=== PATIENT | female | born 1965 ===

== ENCOUNTER 2020-06-03 14:00 | Outpatient (RCR) | payer MEDICARE, MEDICAID, SELFPAY | END 2020-06-21 09:31 | disposition other institution (70) | LOC: HO.PT 14:00 | PROVIDERS: PCP Internal Medicine; Visit Provider Neurological Surgery | DX: M53.3 Sacrococcygeal disorders, not elsewhere classified (principal) | CPT/HCPCS: 97110; 97140 ==

== ENCOUNTER 2020-06-24 12:08 | Outpatient (REF) | payer MEDICARE, MEDICAID, SELFPAY ==
[2020-06-24 12:45] LABS: MANUAL DIFF FLAG NO
[2020-06-24 13:00] LABS: Basophils Absolute Auto 0.1 X10*3/uL (0.0-0.2); Eosinophils Absolute Auto 0.2 X10*3/uL (0.0-0.4); Eosinophils Percent Auto 3.3 % (0-4); Hematocrit 38.1 % (37-47); Hemoglobin 12.4 g/dl (12.0-16.0); Imm Gran Abs Auto 0.02 X10*3/uL (0.00-0.03); Imm Gran Pct Auto 0.3 % (0.0-0.4); Lymphocytes Absolute Auto 2.1 X10*3/uL (1.2-4.9); Lymphocytes Percent Auto 29.8 % (20-40); Mean Corpuscular HGB Conc 32.5 g/dl (31.0-35.0); Mean Corpuscular Hemoglobin 30.8 pg (27.0-33.0); Mean Corpuscular Volume 94.8 fL (80-98); Mean Platelet Volume 9.7 fL (9.4-12.3); Monocytes Absolute Auto 0.8 X10*3/uL (0.1-1.2); Monocytes Percent Auto 10.9 % (2-11); Neutrophils Absolute Auto 3.8 X10*3/uL (2.0-8.3); Neutrophils Percent Auto 54.7 % (45-73); Platelet Count 275 X10*3/uL (160-400); Red Blood Count 4.02 X10*6/uL (4.20-5.50); Red Cell Distribution Width 12.7 % (11.0-16.0); White Blood Count 6.9 X10*3/uL (4.8-10.8)
[2020-06-24 13:04] LABS: Glucose Urine UA NEG (NEG); Leukocyte Esterase Urine NEG (NEG); Nitrite Urine NEG (NEG); Urine Blood TRACE (NEG); Urine Ketones NEG (NEG); Urine Protein NEG (NEG-TRACE)
[2020-06-24 13:05] LABS: Appearance Urine CLEAR; Color Urine YELLOW
[2020-06-24 13:24] LABS: Mucus Urine 1+ /LPF; Squamous Epithelial Cell Urine 1+ /LPF; WBC Urine 0 /HPF (0-4)
[2020-06-24 13:52] LABS: Vitamin D 25-OH Total 22.5 ng/mL (>30)
[2020-06-24 13:55] LABS: Alanine Aminotransferase 10 U/L (0-31); Albumin Level 4.3 g/dL (3.5-5.0); Alkaline Phosphatase 121 U/L (39-117); Anion Gap 11 (12-20); Aspartate Amino Transferase 18 U/L (5-31); Bilirubin Total 0.3 mg/dL (0.0-1.0); Blood Urea Nitrogen 13 mg/dL (9-16); C Reactive Protein 0.03 mg/dL (< or = 0.50); Calcium 9.4 mg/dL (8.4-10.2); Carbon Dioxide 32 mmol/L (22-29); Chloride 102 mmol/L (96-108); Cholesterol 187 mg/dL; Estimated Glomerular Filt Rate > 60; Glucose Fasting 91 mg/dL (60-99); HDL Cholesterol 55 mg/dL; LDL Cholesterol Calculated 108 mg/dl; Potassium 5.4 mmol/l (3.3-5.1); Sodium 140 mmol/L (135-145); Total Protein 7.7 g/dL (6.5-8.0); Triglycerides 124 mg/dL
== END 2020-06-24 12:09 | disposition home or self-care (01) ==
LOC: HO.LAB 12:08
PROVIDERS: PCP Internal Medicine; Visit Provider Internal Medicine
DX: Z00.00 Encounter for general adult medical examination without abnormal findings (principal); M79.7 Fibromyalgia; M54.9 Dorsalgia, unspecified; E55.9 Vitamin D deficiency, unspecified
CPT/HCPCS: 36415; 80053; 80061; 81001; 81003; 82306; 85025; 86140

== ENCOUNTER 2020-08-23 12:13 | Day surgery (SDC) | payer MEDICARE, MEDICAID, SELFPAY ==
--- NOTE | ~2020-08-23 | IR_ITS ---
EXAMINATION: FLUOROSCOPY-GUIDED RIGHT SI JOINT INJECTION. CLINICAL INFORMATION: Right buttock pain. COMPARISON: None TECHNIQUE: Following explaining fluoroscopy-guided right SI joint injection procedure, benefits and risk, a written consent was obtained. Patient was placed prone on fluoroscopy table and low back area was cleaned and draped. The right SI joint was localized on the right buttock region. 1% lidocaine was injected at the puncture site. A 22-gauge spinal needle was then advanced along the inferior aspect of right SI joint and 1 mL of contrast was injected to opacify the joint space and document needle position in the joint. Subsequently combination of 1 mL of hydrocortisone and 1 mL of 1% lidocaine was injected and needle withdrawn. Complete hemostasis achieved at puncture site. Patient ordered procedure well. Sterile dressing applied postprocedure. FINDINGS: The right SI joint was localized in the fluoroscopy. The joints was maintained normal. Fluoroscopy-guided right SI joint steroid injection performed. IR/IR epidurography IMPRESSION: Successful right SI joint steroid injection performed without immediate complications. Fluoroscopy time: 2.5 minutes. Images: 2
[2020-08-23 12:21] VITALS: BMI 23.4
[2020-08-23 12:38] LABS: MANUAL DIFF FLAG NO
[2020-08-23 12:41] LABS: Basophils Absolute Auto 0.1 X10*3/uL (0.0-0.2); Basophils Percent Auto 0.8 % (0-2); Eosinophils Absolute Auto 0.2 X10*3/uL (0.0-0.4); Eosinophils Percent Auto 2.9 % (0-4); Hematocrit 36.7 % (37-47); Hemoglobin 12.2 g/dl (12.0-16.0); Imm Gran Abs Auto 0.02 X10*3/uL (0.00-0.03); Imm Gran Pct Auto 0.3 % (0.0-0.4); Lymphocytes Absolute Auto 2.2 X10*3/uL (1.2-4.9); Lymphocytes Percent Auto 31.4 % (20-40); Mean Corpuscular HGB Conc 33.2 g/dl (31.0-35.0); Mean Corpuscular Hemoglobin 31.2 pg (27.0-33.0); Mean Corpuscular Volume 93.9 fL (80-98); Mean Platelet Volume 9.3 fL (9.4-12.3); Monocytes Absolute Auto 0.8 X10*3/uL (0.1-1.2); Monocytes Percent Auto 11.8 % (2-11); Neutrophils Absolute Auto 3.8 X10*3/uL (2.0-8.3); Neutrophils Percent Auto 52.8 % (45-73); Platelet Count 263 X10*3/uL (160-400); Red Blood Count 3.91 X10*6/uL (4.20-5.50); Red Cell Distribution Width 12.8 % (11.0-16.0); White Blood Count 7.1 X10*3/uL (4.8-10.8)
[2020-08-23 12:47] LABS: INTERNATIONAL NORM RATIO 1.1 (0.9-1.1); Prothrombin Time 12.9 SEC (10.8-13.0)
[2020-08-23 12:49] LABS: Partial Thromboplastin Time 33.7 SEC (24.1-38.0)
[2020-08-23 14:30] VITALS: BP 150/71; PULSE 59; RESP 16; TEMP 36.7; O2SAT 97
[2020-08-23] MEDS: Lidocaine HCl 1 % MPF 5 ML VIAL SUBCUT (14:35)
[2020-08-23] MEDS: iohexoL 300 MG/ML 50 ML INFUS..BTL IV (14:37)
[2020-08-23] MEDS: methylPREDNISolone acetate 80 MG VIAL INTRAARTIC (14:37)
[2020-08-23 14:59] VITALS: BP 141/73; PULSE 60; RESP 16; O2SAT 99
[2020-08-23 15:27] VITALS: BP 131/56; PULSE 61; RESP 17; TEMP 36.6; O2SAT 97
== END 2020-08-23 15:32 | disposition home or self-care (01) ==
PROVIDERS: Radiology Diagnostic Radiology; PCP Internal Medicine; Visit Provider Neurological Surgery
PROC: 3E0R3GC Introduction of Other Therapeutic Substance into Spinal Canal, Percutaneous Approach (ICD-10-PCS; principal; 2020-08-23 13:30)
DX: M53.3 Sacrococcygeal disorders, not elsewhere classified (principal); Z98.1 Arthrodesis status; I10 Essential (primary) hypertension
CPT/HCPCS: 27096; 36415; 72275; 85025; 85610; 85730; J0702; J1040; Q9967

== ENCOUNTER → 2020-09-22 11:15 | Outpatient (BNVA) | payer MEDICARE, MEDICAID, SELFPAY | PROVIDERS: PCP Internal Medicine; Visit Provider Student in an Organized Health Care Education/Training Program | DX: M54.41 Lumbago with sciatica, right side (principal); G89.29 Other chronic pain | CPT/HCPCS: 99212 ==

== ENCOUNTER 2021-05-05 13:54 | Outpatient (REF) | payer MEDICARE, MEDICAID, SELFPAY ==
[2021-05-05 14:45] LABS: Influenza A PCR NEGATIVE (Negative); Influenza B PCR NEGATIVE (Negative); Resp Syncy Virus RNA Qual PCR NEGATIVE (Negative); SARS COV2 PCR INHOUSE NEGATIVE (Negative)
== END 2021-05-05 13:55 | disposition home or self-care (01) ==
LOC: HO.LNP 13:54
PROVIDERS: Visit Provider Internal Medicine
DX: Z20.822 Contact with and (suspected) exposure to COVID-19 (principal)
CPT/HCPCS: 0241U

== ENCOUNTER 2021-05-27 10:12 | Outpatient (REF) | payer MEDICARE, MEDICAID, SELFPAY ==
[2021-05-27 12:40] LABS: Alanine Aminotransferase 17 U/L (0-31); Albumin Level 4.2 g/dL (3.5-5.0); Alkaline Phosphatase 117 U/L (39-117); Anion Gap 11 (12-20); Aspartate Amino Transferase 20 U/L (5-31); Bilirubin Total 0.5 mg/dL (0.0-1.0); Blood Urea Nitrogen 13 mg/dL (9-16); Calcium 9.8 mg/dL (8.4-10.2); Carbon Dioxide 30 mmol/L (22-29); Chloride 105 mmol/L (96-108); Estimated Glomerular Filt Rate > 60; Glucose Random 94 mg/dL (60-115); Potassium 4.6 mmol/L (3.3-5.1); Sodium 141 mmol/L (135-145); Total Protein 7.4 g/dL (6.5-8.0)
== END 2021-05-27 10:13 | disposition home or self-care (01) ==
LOC: HO.LAB 10:12
PROVIDERS: PCP Internal Medicine; Visit Provider Nurse Practitioner Family
DX: M54.41 Lumbago with sciatica, right side (principal); M77.11 Lateral epicondylitis, right elbow; G89.29 Other chronic pain; Z79.899 Other long term (current) drug therapy
CPT/HCPCS: 36415; 80053; 99212

== ENCOUNTER 2021-08-17 10:04 | Emergency (ER) | payer MEDICARE, MEDICAID, SELFPAY ==
[2021-08-17 11:31] VITALS: BP 165/94; PULSE 72; RESP 18; TEMP 36.7; O2SAT 97; BMI 24.4
[2021-08-17 12:51] LABS: COVID-19 Test Positive (Negative); IDNOW Serial# 9DD0AD1C
--- NOTE | 2021-08-17 13:30 | ED.URI ---
HPI - URI/Sore Throat General Chief Complaint: Upper Respiratory Symptoms Stated Complaint: COVID symptoms Time Seen by Provider: 08/17/21 13:29 Source: patient Mode of arrival: ambulatory Limitations: no limitations History of Present Illness HPI Narrative: 56-year-old female presents to the ER with COVID symptoms after known exposure. She lives at home with her daughter and grandson who both tested positive recently. All her fully vaccinated. She reports dry cough, body aches, and headaches since yesterday. She denies any shortness of breath or chest pain. She denies any fever or chills. She is drinking normally and has no nausea, vomiting or diarrhea. MD elicited complaint: cough and other (Body aches and headaches) Onset (ago): day(s) (1) Consistency: constant Severity: moderate Able to tolerate fluids by mouth: Yes Exacerbating factors: nothing Relieving factors: nothing Context: sick contacts Associated symptoms: myalgias, headache and cough Treatments prior to arrival: none Related Data Home Medications Medication Instructions Recorded Confirmed acetaminophen 325 mg capsule 650 mg PO Q6H PRN 09/22/20 (Tylenol) lorazepam 0.5 mg tablet 0.5 mg PO DAILY PRN 09/22/20 trazodone 50 mg tablet 50 mg PO BEDTIME PRN 09/22/20 pregabalin 75 mg capsule (Lyrica) 75 mg PO BEDTIME cap 05/27/21 Previous Rx's Medication Instructions Recorded lidocaine 5 % topical patch 1 patch TOPICAL DAILY #30 ea 09/22/20 Allergies Allergy/AdvReac Type Severity Reaction Status Date / Time gabapentin Allergy Mild Nausea Verified 08/17/21 11:36 Review of Systems Review of Systems: Constitutional: No Fever, No Chills ENT/Mouth: No sore throat, No Rhinorrhea, No Swallowing Difficulty Cardiovascular: No Chest Pain, No SOB Respiratory: + Cough, No Sputum, No Wheezing, No dyspnea Gastrointestinal: No Nausea, No Vomiting, No Diarrhea, No abdominal Pain Musculoskeletal: No joint pain, + Myalgias Skin: No Skin Lesions, No rash Neuro: + Weakness, No Numbness, No Dizziness, + Headache Psych: + Anxiety/Panic Heme/Lymph: No Lymphadenopathy PMFSH Past Medical History Medical History (Updated 08/17/21 @ 13:33 by EDVIN Drake) Anxiety Depression Lumbago with sciatica, right side Social History Social History Alcohol intake: never Patient Tobacco Use Status: Never used Tobacco e-Cigarette/Vaping Use: Never Used Patient : No Physical Exam Vital Signs: Vital Signs: Last Vital Signs Temp 98.1 F 08/17/21 11:31 Pulse 72 08/17/21 11:31 Resp 18 08/17/21 11:31 BP 165/94 H 08/17/21 11:31 Pulse Ox 97 08/17/21 11:31 BMI result Body Mass Index 24.4 Appearance: Alert. Oriented X3. No acute distress. Eyes: Pupils equal, round and reactive to light. ENT: Pharynx normal. Tonsils are normal in appearance without erythema or exudate Neck: Normal inspection. Neck supple. CVS: Normal heart rate and rhythm. Pulses normal. Respiratory: No respiratory distress. Breath sounds normal. Skin: Skin warm and dry. Normal skin color. Normal skin turgor. No rashes. Extremities: No lower extremity edema. No calf tenderness. Neuro: Oriented X 3. Grossly normal, nonfocal Course Course Course Narrative: 56-year-old female presenting with dry cough, headache and body aches after known exposure to COVID-19. VS are normal and exam is benign. Patient was counseled on diagnosis and management. She is stable for discharge home with supportive care and outpatient follow-up. MDM - URI/Sore Throat Lab Data Labs: Lab Results 08/17/21 Range/Units 12:37 COVID-19 ([facility]) Positive A (Negative) COVID-19 Clin Com See Note Critical Care Time Critical Care Time Critical Care Time: No Discharge Plan Discharge Clinical Impression: COVID-19 Patient Disposition: Home, Self-Care Instructions: Covid-19 Viral Syndrome and Novel Coronavirus (ED) Hey/Ath Additional Instructions: You were found to be COVID-19 POSITIVE today. Your exam and oxygen levels were normal. Rest. Drink plenty of fluids. Do not go out in public for the next 10 days. Take over the counter cold/flu medications as needed for your symptoms. Take Tylenol and/or Motrin as needed for fevers and body aches. Follow up with your doctor this week. If you shortness of breath worsens , if you develop difficulty breathing or any other concerning symptom come back to the ER for further evaluation. Prescriptions: No Action trazodone 50 mg tablet 50 mg PO BEDTIME PRNRF: 0 lorazepam 0.5 mg tablet 0.5 mg PO DAILY PRNRF: 0 acetaminophen [Tylenol] 325 mg capsule 650 mg PO Q6H PRNRF: 0 lidocaine 5 % adhesive patch,medicated 1 patch topical DAILY Qty: 30 RF: 2 pregabalin [Lyrica] 75 mg capsule 75 mg PO BEDTIME RF: 0 Referrals: Kodi Roach MD [Primary Care Provider] - 1 week Stand Alone Forms: Work/School Release
== END 2021-08-17 14:04 | disposition home or self-care (01) ==
LOC: HO.ED 13:46
PROVIDERS: Emergency Provider Emergency Medicine; PCP Internal Medicine
DX: U07.1 COVID-19 (principal)
CPT/HCPCS: 36415; 87635; 99283

== ENCOUNTER 2021-08-29 10:25 | Outpatient (REF) | payer MEDICARE, MEDICAID, SELFPAY ==
[2021-08-29 11:13] LABS: COVID-19 Test Negative (Negative); IDNOW Serial# 9DD0AD1C
== END 2021-08-29 10:26 | disposition home or self-care (01) ==
LOC: HO.LNP 10:25
PROVIDERS: Visit Provider Internal Medicine
DX: Z20.822 Contact with and (suspected) exposure to COVID-19 (principal)
CPT/HCPCS: 87635

== ENCOUNTER 2021-12-30 15:25 | Outpatient (REF) | payer MEDICARE, MEDICAID, SELFPAY ==
[2021-12-30 15:39] LABS: MANUAL DIFF FLAG NO
[2021-12-30 15:55] LABS: Basophils Absolute Auto 0.1 X10*3/uL (0.0-0.2); Eosinophils Absolute Auto 0.2 X10*3/uL (0.0-0.4); Eosinophils Percent Auto 2.1 % (0-4); Hematocrit 35.8 % (37.0-47.0); Hemoglobin 11.9 g/dl (12.0-16.0); Imm Gran Abs Auto 0.03 X10*3/uL (0.00-0.03); Imm Gran Pct Auto 0.3 % (0.0-0.4); Lymphocytes Absolute Auto 2.3 X10*3/uL (1.2-4.9); Lymphocytes Percent Auto 25.9 % (20-40); Mean Corpuscular HGB Conc 33.2 g/dl (31.0-35.0); Mean Corpuscular Volume 93.2 fL (80.0-98.0); Mean Platelet Volume 9.2 fL (9.4-12.3); Monocytes Absolute Auto 0.9 X10*3/uL (0.1-1.2); Monocytes Percent Auto 10.4 % (2-11); Neutrophils Absolute Auto 5.4 x10*3/uL (2.0-8.3); Neutrophils Percent Auto 60.3 % (45-73); Platelet Count 292 X10*3/uL (160-400); Red Blood Count 3.84 X10*6/uL (4.20-5.50); Red Cell Distribution Width 13.2 % (11.0-16.0)
[2021-12-30 16:16] LABS: Alanine Aminotransferase 11 U/L (0-31); Alkaline Phosphatase 124 U/L (39-117); Anion Gap 11 (12-20); Aspartate Amino Transferase 16 U/L (5-31); Bilirubin Total 0.4 mg/dL (0.0-1.0); Blood Urea Nitrogen 15 mg/dL (9-16); C Reactive Protein 0.05 mg/dL (< or = 0.50); Calcium 9.8 mg/dL (8.4-10.2); Carbon Dioxide 29 mmol/L (22-29); Chloride 105 mmol/L (96-108); Estimated Glomerular Filt Rate > 60; Glucose Random 94 mg/dL (60-115); Potassium 4.6 mmol/L (3.3-5.1); Sodium 140 mmol/L (135-145); Total Protein 7.6 g/dL (6.5-8.0)
[2021-12-30 16:39] LABS: Free T4 (Free Thyroxine) 1.03 ng/dL (0.71-1.85); Thyroid Stimulating Hormone 0.63 uIU/mL (0.32-4.0)
[2021-12-30 16:51] LABS: Folate 12.7 ng/mL (> or = 4.0); Vitamin B12 238 pg/mL (200-900)
[2021-12-30 16:54] LABS: Erythrocyte Sedimentation Rate 14 MM/HR (0-20)
== END 2021-12-30 15:26 | disposition home or self-care (01) ==
LOC: HO.LAB 15:25
PROVIDERS: PCP Internal Medicine; Visit Provider Internal Medicine
DX: R53.83 Other fatigue (principal); M54.9 Dorsalgia, unspecified; M79.606 Pain in leg, unspecified; E55.9 Vitamin D deficiency, unspecified; E53.8 Deficiency of other specified B group vitamins
CPT/HCPCS: 36415; 80053; 82306; 82607; 82746; 84439; 84443; 85025; 85652; 86140

== ENCOUNTER 2021-12-31 15:29 | Emergency (ER) | payer MEDICARE, MEDICAID, SELFPAY ==
[2021-12-31 16:24] VITALS: BP 147/75; PULSE 60; RESP 17; TEMP 36.3; O2SAT 98; BMI 22.4
--- NOTE | 2021-12-31 18:19 | ED_ITS ---
HPI - Skin/Abscess/Foreign Bdy General Chief complaint: Skin/Abscess/Foreign Body Stated complaint: bug bite Time Seen by Provider: 12/31/21 18:18 Source: patient Mode of arrival: ambulatory Limitations: no limitations History of Present Illness HPI narrative: 56-year-old female presents to the emergency department with complaints of a bug bite that she noticed this morning. Patient tells me that she has a small red area to her right biceps, she noticed after waking up this morning. She does not report any associated itchiness, or pain. She tells me that she is worried because she sleeps with her dog at night, she tells me she is worried about fleas in takes. She has not seen any fleas or tics on the dog however she tells me she has a concern. Patient denies any malaise, fatigue, body aches, fevers, chills, chest pain, shortness of breath, joint pain, vision changes, dizziness. No other rashes throughout body. She tells me to the best of her knowledge there is nothing on her right biceps yesterday. complaint: other (Suspected bug bite) Onset (ago): day(s) (1) Location: RUE Relieving factors: none Exacerbating factors: none Context: none Associated symptoms: denies other symptoms Treatments prior to arrival: none Related Data Home Medications Medication Instructions Recorded Confirmed acetaminophen 325 mg capsule 650 mg PO Q6H PRN 09/22/20 (Tylenol) lorazepam 0.5 mg tablet 0.5 mg PO DAILY PRN 09/22/20 trazodone 50 mg tablet 50 mg PO BEDTIME PRN 09/22/20 pregabalin 75 mg capsule (Lyrica) 75 mg PO BEDTIME cap 05/27/21 Previous Rx's Medication Instructions Recorded lidocaine 5 % topical patch 1 patch TOPICAL DAILY #30 ea 09/22/20 cephalexin 500 mg capsule 500 mg PO QID 10 Days #40 cap 12/31/21 doxycycline hyclate 100 mg capsule 100 mg PO BID 10 Days #20 cap 12/31/21 Allergies Allergy/AdvReac Type Severity Reaction Status Date / Time gabapentin Allergy Mild Nausea Verified 12/31/21 16:39 Review of Systems Review of Systems: Constitutional : No Fever, No Chills, Cardiovascular : No Chest Pain, No SOB Respiratory : No Dyspnea Gastrointestinal : No abdominal pain Musculoskeletal : No Joint Swelling Skin : + rash, No skin laceration Neuro : No Weakness, No Numbness Psych : No SI/HI Yes all other systems are reviewed and are negative FORMERLY [facility], [facility] Past Medical History Attestation statement: The following information was validated with the patient. Source: old records reviewed and nursing notes reviewed Medical History Anxiety Depression Lumbago with sciatica, right side Social History Social History Alcohol intake: never Patient Tobacco Use Status: Never used Tobacco e-Cigarette/Vaping Use: Never Used Advance Directives: No Advance Directives Information Provided: No Physical Exam Vital Signs: Vital Signs: Last Vital Signs Temp 97.4 F 12/31/21 16:24 Pulse 60 12/31/21 16:24 Resp 17 12/31/21 16:24 BP 147/75 H 12/31/21 16:24 Pulse Ox 98 12/31/21 16:24 BMI result Body Mass Index 22.4 VSS Appearance: Alert.? Oriented X3.? No acute distress.? Head: Normocephalic, atraumatic, no step-offs or deformities Eyes: Pupils equal, round and reactive to light.? ENT: Pharynx normal.? Neck: Normal inspection.? Neck supple.? CVS: Normal heart rate and rhythm.? Pulses normal.? Respiratory: No respiratory distress.? Breath sounds normal.? Abdomen: Soft and nontender.? Skin: Skin warm and dry.? Normal skin color.? Normal skin turgor.?+ rash w/ overlying warmth on right bicep (image attached) Extremities: No lower extremity edema.? No calf ttp. 5/5 strength to bilateral upper and lower extremities Back: No midline tenderness, no C-spine tenderness, full range of motion, no C VA tenderness bilaterally Neuro: Oriented X 3.? No motor deficit.? No sensory deficit. CN 2-12 intact Course Reevaluation(s) Reevaluation #1: At this time patient will be discharged home with doxycycline and Keflex. She will be called if her Lyme test are positive. Advised her to return with new or worsening symptoms. Outline the erythematous area with a skin marker and advised her to return if redness worsens or she has fevers, chills or any other abnormal symptoms. At this time comfortable with discharge home with strict return precautions. Time: 18:30 MDM - Skin/Abscess/Foreign Bdy MDM Narrative Medical decision making narrative: 1809 56 yo f presents for a rash/suspected bug bite to R. timothy X1 day. PE significant for rash to right bicept images attached Patient reports she sleeps with the dog, at this time Lyme test will be obtained. She will be started on doxycycline and Keflex for cellulitis. If needed a longer course of doxycycline will be called to her pharmacy of Lyme test are positive. Plan at this time is Lyme test. Medical Records Attestation: I reviewed the patient's medical records. Lab Data Attestation: I reviewed the patient's lab results. Critical Care Time Critical Care Time Critical Care Time: No Discharge Plan Discharge Clinical Impression: Cellulitis Patient Disposition: Home, Self-Care Instructions: Cellulitis (ED), Warm Compress or Soak (ED) Additional Instructions: Take your medications as prescribed. If you were prescribed antibiotics today, it is important that you take your medication to their entirety, do not skip any doses, do not finish them early. Follow-up with your primary care provider this week. Return to the emergency department with new or worsening symptoms. Such as fevers, chills, chest pain, shortness of breath, nausea, vomiting, dizziness, headache, vision changes, lethargy In case of emergency call 911 A Lyme panel was drawn and results are pending. If these results are positive you will be called. If this is the case additional antibiotics will be sent to her pharmacy. At this time I am treating you for skin infection with doxycycline and Keflex 2 antibiotics. Prescriptions: New doxycycline hyclate 100 mg capsule 100 mg PO BID 10 Days Qty: 20 0RF cephalexin 500 mg capsule 500 mg PO QID 10 Days Qty: 40 0RF No Action trazodone 50 mg tablet 50 mg PO BEDTIME PRN0RF lorazepam 0.5 mg tablet 0.5 mg PO DAILY PRN0RF acetaminophen [Tylenol] 325 mg capsule 650 mg PO Q6H PRN0RF lidocaine 5 % adhesive patch,medicated 1 patch topical DAILY Qty: 30 2RF Rx Instructions: leave on most painful area for up to 12 hrs pregabalin [Lyrica] 75 mg capsule 75 mg PO BEDTIME 0RF Referrals: Kodi Roach MD [Primary Care Provider] - 2 days
[2021-12-31] MEDS: cephALEXin 500 MG CAPSULE PO (18:49)
[2022-01-02 17:46] LABS: Lyme Abs Screen <0.90 index
== END 2021-12-31 18:56 | disposition home or self-care (01) ==
PROVIDERS: Physician Assistant; Emergency Provider Internal Medicine; PCP Internal Medicine
DX: L03.113 Cellulitis of right upper limb (principal)
CPT/HCPCS: 36415; 86617; 86618; 99283

== ENCOUNTER 2022-02-23 14:22 | Emergency (ER) | payer MEDICARE, MEDICAID, SELFPAY ==
[2022-02-23 14:36] VITALS: BP 151/114; PULSE 77; RESP 20; TEMP 36.8; O2SAT 97; BMI 24.1
--- NOTE | 2022-02-23 16:52 | ED_ITS ---
HPI - Skin/Abscess/Foreign Bdy General Chief complaint: Skin/Abscess/Foreign Body Stated complaint: rash on lips, painful Time Seen by Provider: 02/23/22 16:51 Source: patient Mode of arrival: ambulatory Limitations: no limitations History of Present Illness HPI narrative: 48-year-old female presents for a burning rash around her lips that she states started about a week ago after [place] the beach. Patient thought she was sunburned, but now has blisters with fluid-filled vesicles and crusting on her lower lip and area between her upper lip and nose no fevers. Feeling well otherwise No sore throat, no lesions in her mouth, no ear pain, no URI symptoms, no cough, no chest pain, no shortness of breath Related Data Home Medications Medication Instructions Recorded Confirmed acetaminophen 325 mg capsule 650 mg PO Q6H PRN 09/22/20 (Tylenol) lorazepam 0.5 mg tablet 0.5 mg PO DAILY PRN 09/22/20 trazodone 50 mg tablet 50 mg PO BEDTIME PRN 09/22/20 pregabalin 75 mg capsule (Lyrica) 75 mg PO BEDTIME 05/27/21 Previous Rx's Medication Instructions Recorded lidocaine 5 % topical patch 1 patch topical DAILY #30 ea 09/22/20 cephalexin 500 mg capsule 500 mg PO QID 10 days #40 caps 12/31/21 doxycycline hyclate 100 mg capsule 100 mg PO BID 10 days #20 caps 12/31/21 mupirocin 2 % topical ointment 1 appl topical TID #22 grams 02/23/22 oxycodone 5 mg tablet 5 mg PO Q8H PRN pain #6 tabs 02/23/22 valacyclovir 1 gram tablet 1,000 mg PO BID 10 days #20 tabs 02/23/22 Allergies Allergy/AdvReac Type Severity Reaction Status Date / Time gabapentin Allergy Mild Nausea Verified 12/31/21 16:39 Review of Systems Constitutional: Constitutional: Denies body ache(s), Denies chills, Denies fatigue, Denies fever(s), Denies headache(s), Denies malaise and Denies weakness Eyes: Eyes: Denies diplopia ENT: Denies vertigo, Denies dizziness, Denies otalgia, Denies headache(s), Denies mouth pain, Denies post nasal drip, Denies sinus pain, Denies sinus pressure, Denies sore throat and Denies throat swelling Cardiovascular: Cardiovascular: Denies chest pain, Denies syncope, Denies leg edema, Denies lightheadedness, Denies Loss of Consciousness, Denies palpitations and Denies dyspnea Respiratory: Respiratory: Denies chest congestion, Denies cough and Denies dyspnea Gastrointestinal: Gastrointestinal: Denies abdominal pain, Denies hematochezia, Denies constipation, Denies diarrhea, Denies nausea and Denies vomiting Musculoskeletal: Musculoskeletal: Reports no additional musculoskeletal complaints Integumentary/Breasts: Skin/Breast: Reports lesions, Reports rash and Reports skin pain Neurologic: Denies confusion, Denies vertigo, Denies dizziness, Denies syn cope, Denies headache(s) and Denies weakness Psychiatric: Psychiatric: Denies anxiety, Denies confusion and Denies depression Endocrine: Endocrine: Denies fatigue and Denies palpitations Allergic/Immunologic: Allergic/Immunologic: Denies throat swelling PMFSH Past Medical History Medical History Anxiety Depression Lumbago with sciatica, right side Social History Social History Alcohol intake: never Patient Tobacco Use Status: Never used Tobacco e-Cigarette/Vaping Use: Never Used Advance Directives: No Advance Directives Information Provided: Yes Physical Exam Vital Signs: Vital Signs: Last Vital Signs Temp 98.2 F 02/23/22 14:36 Pulse 77 02/23/22 14:36 Resp 20 02/23/22 14:36 BP 151/114 H 02/23/22 14:36 Pulse Ox 97 02/23/22 14:36 O2 Del Method 02/23/22 14:36 BMI result Body Mass Index 24.1 Const: General: No confusion Nutritional Appearance: well nourished Orientation/consciousness: No confusion Limitations: no limitations HEENT: Head: Yes normocephalic and Yes atraumatic Ears: hearing grossly normal bilaterally, external ears normal, TM's normal bilaterally and EAC's no rmal General nose exam: Normal external nose present Nose image: 1. Red fluid filled vesicles erythematous 2. Fluid-filled vesicles with crustiness on a erythematous base 3. Yellow crusty lesion Face and sinus: Yes sinuses nontender Mouth: Normal oral and palatal mucosa present Throat: Yes posterior oropharynx normal Eyes: Conjunctivae: conjunctivae normal Pupils: Equal, round and reactive pupils present EOM: EOMs intact bilaterally Neck: Neck: Yes full ROM, Yes no lymphadenopathy and Yes supple Resp: Effort & Inspection: normal respiratory effort and able to speak in complete sentences Auscultation: clear to auscultation bilaterally, no crackles, no rales, no rhonchi and no wheezes Cardio: Rate: regular rate Rhythm: regular rhythm Heart sounds: S1 normal heart sound present and S2 normal heart sound present GI: Inspection: Yes normal to inspection Palpation (GI): Soft to palpation, nontender, no guarding and not rigid Percussion: Yes normal to percussion Auscultation: normal bowel sounds Skin: General skin exam: crusts Rashes: rashes noted Neuro: General: No confusion Cranial nerves: Yes Equal, round and reactive pupils present Extrem: General: Yes normal to inspection and Yes full ROM Psych: Appearance: grossly normal Affect: normal affect Attitude: cooperative Thought process: Normal thought process present Course Course Course Narrative: Fluid-filled vesicles on erythematous background, crusting on lower lip Looks like and fatigue 0, cannot rule out herpetic involvement Will treat for both impetigo and herpes, did get viral herpes swab. Answered all patient's questions, gave return precautions Discharge Plan Discharge Clinical Impression: Impetigo, Herpes dermatitis Patient Disposition: Home, Self-Care Instructions: Impetigo (ED) Additional Instructions: As we discussed, this is most likely impetigo, a bacterial skin infection. However, I have obtained a viral culture swab, we will also test for herpes and treat you for herpes. Please call the hospital early next week to see what the results are, because, as we discussed, if your herpes test comes back negative we will not call you. It would be nice to know if this is herpes or not definitively. Please take valacyclovir that I prescribed to her pharmacy. I am also prescribing some oxycodone for pain. Please return to emergency room for any new or concerning symptoms Prescriptions: New mupirocin 2 % ointment 1 appl topical TID Qty: 22 0RF valacyclovir 1 gram tablet 1,000 mg PO BID 10 Days Qty: 20 0RF oxycodone 5 mg tablet 5 mg PO Q8H PRN (Reason: pain) Qty: 6 0RF Rx Instructions: Partial Fill upon patient request. No Action doxycycline hyclate 100 mg capsule 100 mg PO BID 10 Days Qty: 20 0RF cephalexin 500 mg capsule 500 mg PO QID 10 Days Qty: 40 0RF trazodone 50 mg tablet 50 mg PO BEDTIME PRN lorazepam 0.5 mg tablet 0.5 mg PO DAILY PRN acetaminophen [Tylenol] 325 mg capsule 650 mg PO Q6H PRN lidocaine 5 % adhesive patch,medicated 1 patch topical DAILY Qty: 30 2RF Rx Instructions: leave on most painful area for up to 12 hrs pregabalin [Lyrica] 75 mg capsule 75 mg PO BEDTIME Interventions: ED Discharge Assessment Last Done: 02/23/22 17:32 Discharge Date/Time: 02/23/22 17:33
[2022-02-23] MEDS: oxyCODONE HCl Immed Release 5 MG TABLET PO (17:14)
== END 2022-02-23 17:33 | disposition home or self-care (01) ==
PROVIDERS: Physician Assistant; Emergency Provider Emergency Medicine; PCP Internal Medicine
DX: L40.1 Generalized pustular psoriasis (principal); Z79.899 Other long term (current) drug therapy
CPT/HCPCS: 87255; 99283; 99284

== ENCOUNTER → 2022-09-18 09:44 | Outpatient (BNVA) | payer MEDICARE, MEDICAID, SELFPAY | PROVIDERS: PCP Internal Medicine; Visit Provider Nurse Practitioner Family | DX: M47.816 Spondylosis without myelopathy or radiculopathy, lumbar region (principal); M25.561 Pain in right knee; M25.562 Pain in left knee; M79.641 Pain in right hand | CPT/HCPCS: 99212 ==

== ENCOUNTER 2022-09-20 14:10 | Outpatient (REF) | payer MEDICARE, MEDICAID, SELFPAY ==
--- NOTE | ~2022-09-20 | XR_ITS ---
EXAMINATION: XR hand RT min 3V CLINICAL INFORMATION: Pain COMPARISON: Hand radiographs 06/13/2010 TECHNIQUE: 3 views of the hand FINDINGS: No fracture or dislocation. Degenerative changes of the distal interphalangeal joints progressed from prior, predominantly mild however worst involving the fifth DIP joint where it appears severe with complete loss of DIP joint space and degenerative spurring. No cortical erosion. Soft tissues are unremarkable. XR/XR hand RT min 3V IMPRESSION: Degenerative changes of the distal interphalangeal joints progressed from prior worst involving the fifth DIP joint where it appears severe with more mild degenerative changes involving the other digits.
--- NOTE | ~2022-09-20 | XR_ITS ---
EXAMINATION: XR knee RT 3V, XR knee LT 3V CLINICAL INFORMATION: Bilateral knee radiographs 05/24/2015 COMPARISON: None TECHNIQUE: 3 views of the bilateral knees FINDINGS: RIGHT KNEE: No acute fracture or dislocation. Joint spaces are maintained. Small suprapatellar joint effusion. Soft tissues are unremarkable. LEFT KNEE: No acute fracture or dislocation. Joint spaces are maintained. No joint effusion. Soft tissues are unremarkable. XR/XR knee LT 3V IMPRESSION: No acute osseous abnormality. Trace suprapatellar right joint effusion.
--- NOTE | ~2022-09-20 | XR_ITS ---
EXAMINATION: XR knee RT 3V, XR knee LT 3V CLINICAL INFORMATION: Bilateral knee radiographs 05/24/2015 COMPARISON: None TECHNIQUE: 3 views of the bilateral knees FINDINGS: RIGHT KNEE: No acute fracture or dislocation. Joint spaces are maintained. Small suprapatellar joint effusion. Soft tissues are unremarkable. LEFT KNEE: No acute fracture or dislocation. Joint spaces are maintained. No joint effusion. Soft tissues are unremarkable. XR/XR knee RT 3V IMPRESSION: No acute osseous abnormality. Trace suprapatellar right joint effusion.
--- NOTE | ~2022-09-20 | XR_ITS ---
EXAMINATION: XR LUMBOSACRAL SPINE AND PELVIS CLINICAL INFORMATION: Reason for Exam M54.50 - Low back pain, unspecified COMPARISON: Lumbar spine radiographs 04/06/2020 TECHNIQUE: 3 views of the lumbar spine. One view of the pelvis. FINDINGS: 5 nonrib-bearing lumbar-type vertebral bodies. Status post L4-S1 posterior spinal fusion with posterior decompression and L4-L5 anterior fusion. No evidence of hardware fracture or complication. This fixates stable anterolisthesis of L5 on S1. Vertebral body heights are maintained. Dextroconvex curvature of the lumbar spine. Advanced degenerative disc disease at L3-L4 with loss of disc space height progressed from prior. Calcified phleboliths in the pelvis. Hip and sacroiliac joint spaces are maintained. No evidence of acute pelvic fracture or dislocation on this limited single view. XR/XR lumbar spine 2-3V IMPRESSION: * Status post L4-S1 spinal fusion, fixating stable grade 1 anterolisthesis of L5 on S1. No evidence of hardware fracture or complication. * Advanced spondylosis of the lumbar spine at L3-L4, as above detailed. * Levoconvex curvature of the lumbar spine. * No acute osseous abnormality in the pelvis appreciated on this limited single view.
--- NOTE | ~2022-09-20 | XR_ITS ---
EXAMINATION: XR FACIAL BONES CLINICAL INFORMATION: Pain, fall COMPARISON: CT brain 10/03/2014 TECHNIQUE: 3 views of the facial bones were obtained. FINDINGS: Visualized portions of the paranasal sinuses appear clear. No displaced calvarial or facial fracture appreciated. XR/XR facial bones min 3V IMPRESSION: No displaced calvarial or facial fracture appreciated however given history of trauma a CT face would be more sensitive for evaluation.
--- NOTE | ~2022-09-20 | XR_ITS ---
EXAMINATION: XR LUMBOSACRAL SPINE AND PELVIS CLINICAL INFORMATION: Reason for Exam M54.50 - Low back pain, unspecified COMPARISON: Lumbar spine radiographs 04/06/2020 TECHNIQUE: 3 views of the lumbar spine. One view of the pelvis. FINDINGS: 5 nonrib-bearing lumbar-type vertebral bodies. Status post L4-S1 posterior spinal fusion with posterior decompression and L4-L5 anterior fusion. No evidence of hardware fracture or complication. This fixates stable anterolisthesis of L5 on S1. Vertebral body heights are maintained. Dextroconvex curvature of the lumbar spine. Advanced degenerative disc disease at L3-L4 with loss of disc space height progressed from prior. Calcified phleboliths in the pelvis. Hip and sacroiliac joint spaces are maintained. No evidence of acute pelvic fracture or dislocation on this limited single view. XR/XR pelvis 1-2V IMPRESSION: * Status post L4-S1 spinal fusion, fixating stable grade 1 anterolisthesis of L5 on S1. No evidence of hardware fracture or complication. * Advanced spondylosis of the lumbar spine at L3-L4, as above detailed. * Levoconvex curvature of the lumbar spine. * No acute osseous abnormality in the pelvis appreciated on this limited single view.
[2022-09-20 15:44] LABS: Erythrocyte Sedimentation Rate 18 MM/HR (0-20)
[2022-09-20 15:49] LABS: Alanine Aminotransferase 11 U/L (0-31); Albumin Level 4.2 g/dL (3.5-5.0); Alkaline Phosphatase 135 U/L (39-117); Anion Gap 7 (12-20); Aspartate Amino Transferase 18 U/L (5-31); Bilirubin Total 0.5 mg/dL (0.0-1.0); Blood Urea Nitrogen 13 mg/dL (9-16); C Reactive Protein 0.29 mg/dL (< or = 0.50); Calcium 9.5 mg/dL (8.4-10.2); Carbon Dioxide 31 mmol/L (22-29); Chloride 104 mmol/L (96-108); Estimated Glomerular Filt Rate > 60; Glucose Random 90 mg/dL (60-115); Potassium 4.2 mmol/L (3.3-5.1); Sodium 138 mmol/L (135-145); Total Protein 7.4 g/dL (6.5-8.0)
[2022-09-27 20:48] LABS: HLA B27 Positive (Negative)
== END 2022-09-20 14:11 | disposition home or self-care (01) ==
LOC: HO.LAB 14:10
PROVIDERS: Absent Provider Internal Medicine; PCP Internal Medicine; Visit Provider Nurse Practitioner Family
DX: M25.561 Pain in right knee (principal); M25.562 Pain in left knee; M54.50 Low back pain, unspecified; M79.641 Pain in right hand; R10.2 Pelvic and perineal pain; Z91.81 History of falling
CPT/HCPCS: 36415; 70150; 72100; 72170; 73130; 73562; 80053; 85652; 86140; 86812

== ENCOUNTER 2023-04-30 12:17 | Outpatient (REF) | payer MEDICARE, MEDICAID, SELFPAY ==
--- NOTE | ~2023-04-30 | XR_ITS ---
EXAMINATION: XR HAND, LEFT CLINICAL INFORMATION: Left hand pain. COMPARISON: None available. TECHNIQUE: PA, lateral, and oblique views of the left hand. FINDINGS: No acute fracture or dislocation. Mild joint space narrowing with tiny marginal osteophytes at the 1st carpometacarpal and 1st interphalangeal joints. Mild joint space narrowing with small marginal osteophytes scattered throughout the remaining interphalangeal joints. No osseous erosion. No abnormal soft tissue calcification. XR/XR hand LT min 3V IMPRESSION: Mild degenerative arthritis at the 1st carpometacarpal and 1st interphalangeal joints as well as scattered throughout the remaining interphalangeal joints.
--- NOTE | ~2023-04-30 | XR_ITS ---
EXAMINATION: XR RIBS, RIGHT CLINICAL INFORMATION: Right flank pain. COMPARISON: Most recent chest radiograph dated 03/11/2019. TECHNIQUE: PA view the chest as well as 3 views of the right ribs. FINDINGS: No airspace consolidation. No pleural effusion or pneumothorax. Stable cardiac mediastinal silhouette. No displaced fracture. No lytic or blastic osseous lesion. No abnormal soft tissue calcification. XR/XR ribs RT min 3V w CXR1V IMPRESSION: No displaced fracture.
[2023-04-30 12:28] LABS: MANUAL DIFF FLAG NO
[2023-04-30 13:36] LABS: Basophils Absolute Auto 0.1 X10*3/uL (0.0-0.2); Eosinophils Absolute Auto 0.3 X10*3/uL (0.0-0.4); Eosinophils Percent Auto 2.9 % (0-4); Hematocrit 37.1 % (37.0-47.0); Hemoglobin 12.1 g/dl (12.0-16.0); Imm Gran Abs Auto 0.04 X10*3/uL (0.00-0.03); Imm Gran Pct Auto 0.5 % (0.0-0.4); Lymphocytes Absolute Auto 2.2 X10*3/uL (1.2-4.9); Lymphocytes Percent Auto 25.8 % (20-40); Mean Corpuscular HGB Conc 32.6 g/dl (31.0-35.0); Mean Corpuscular Hemoglobin 31.2 pg (27.0-33.0); Mean Corpuscular Volume 95.6 fL (80.0-98.0); Mean Platelet Volume 9.8 fL (9.4-12.3); Monocytes Absolute Auto 1.1 X10*3/uL (0.1-1.2); Monocytes Percent Auto 12.3 % (2-11); Neutrophils Percent Auto 57.5 % (45-73); Platelet Count 319 X10*3/uL (160-400); Red Blood Count 3.88 X10*6/uL (4.20-5.50); Red Cell Distribution Width 12.9 % (11.0-16.0); White Blood Count 8.6 X10*3/uL (4.8-10.8)
[2023-04-30 13:44] LABS: Appearance Urine Clear; Color Urine Yellow; Glucose Urine UA Negative (Negative); Leukocyte Esterase Urine Negative (Negative); Nitrite Urine Negative (Negative); PH 5.5 (5.0-9.0); Specific Gravity - Urine 1.015 (1.005-1.025); UMIC TRIGGER UA YES; Urine Blood Trace (Negative); Urine Ketones Negative (Negative); Urine Protein Negative (Neg-Trace)
[2023-04-30 13:51] LABS: Bacteria Urine None Seen (None Seen); Hyaline Casts Urine 0-2 /LPF (0-2); RBC Urine 0-2 /HPF (0-2); WBC Urine 0-5 /HPF (0-5)
[2023-04-30 14:36] LABS: Anion Gap 10 (12-20); Blood Urea Nitrogen 11 mg/dL (9-16); Calcium 10.2 mg/dL (8.4-10.2); Carbon Dioxide 29 mmol/L (22-29); Chloride 106 mmol/L (96-108); Estimated Glomerular Filt Rate > 60; Glucose Random 89 mg/dL (60-115); Potassium 4.1 mmol/L (3.3-5.1); Sodium 141 mmol/L (135-145)
== END 2023-04-30 12:18 | disposition home or self-care (01) ==
LOC: HO.LAB 12:17
PROVIDERS: PCP Internal Medicine; Visit Provider Internal Medicine
DX: M79.642 Pain in left hand (principal); R10.9 Unspecified abdominal pain; R07.81 Pleurodynia
CPT/HCPCS: 36415; 71101; 73130; 80048; 81001; 85025; 87086

== ENCOUNTER 2023-06-08 08:12 | Outpatient (REF) | payer MEDICARE, MEDICAID, SELFPAY ==
--- NOTE | ~2023-06-08 | MM_ITS ---
EXAMINATION: BONE DENSITOMETRY CLINICAL INDICATION: Screening. COMPARISON: This is the patient's baseline examination. TECHNIQUE: Using a [employer] DXA System (software version: 13.1) manufactured by [employer], dual-energy x-ray absorptiometry was performed of the lumbar spine and left hip. The images are of good technical quality. Summary results are attached. FINDINGS: LEFT FEMUR, NECK: BMD 0.749 g/cm2, Z-score -0.7, T-score -2.1, osteopenia. LEFT FEMUR, TOTAL: BMD 0.830 g/cm2, Z-score -0.3, T-score -1.4, osteopenia. AP SPINE L1-L3 (excluding L4): The data of L1-L4 has been changed to exclude the L4 vertebral body, because metallic hardware at this level may cause overestimation of lumbar spine density. BMD 0.836 g/cm2, Z-score -1.4, T-score -2.8, osteoporosis. IDENTIFIED RISK FACTORS: Menopause. HISTORY OF FRACTURE: None listed. MEDICATIONS: None listed. MM/XR DEXA axial skeleton IMPRESSION: 1. DIAGNOSIS: Osteoporosis based on the lowest T-score value of -2.8 in the lumbar spine applying World Health Organization criteria. 2. 10-YEAR FRACTURE RISK PREDICTION, FRAX: According to the guidelines, FRAX calculation should only be performed on patients in the osteopenia bone density category. Therefore, FRAX was not performed on this patient. 3. Treatment Recommendations: NOF guidelines recommend consideration for treatment in postmenopausal women and men age 50 and older presenting with the following: -A hip or vertebral (clinical or morphometric) fracture. -T-score less than or equal to -2.5 at the femoral neck or spine after appropriate evaluation to exclude secondary causes. -Low bone mass at the hip or spine and a 10-year fracture probability by FRAX of greater than or equal to 3% for hip fracture or greater than or equal to 20% for major osteoporotic fracture based on the [place] adapted WHO algorithm. 4. Other Recommendations: All treatment decisions require clinical judgment and consideration of individual patient factors, including patient preferences, comorbidities, previous drug use, risk factors not captured in the FRAX model (e.g. frailty, falls, vitamin D deficiency, increased bone turnover, interval significant decline in bone density) and possible under or overestimation of fracture risk by FRAX. Additional medical evaluation for secondary cause of low bone mineral density may be appropriate. FUTURE SCAN RECOMMENDATION: People with diagnosed cases of osteoporosis or at high risk for fracture should have regular bone mineral density tests. For patients eligible for Medicare, routine testing is allowed once every 2 years. The testing frequency can be increased to one year for patients who have rapidly progressing disease, those who are receiving or discontinuing medical therapy to restore bone mass, or have additional risk factors.
--- NOTE | ~2023-06-08 | MM_ITS ---
EXAMINATION: MM SCREENING DIGITAL BREAST TOMOSYNTHESIS, BILATERAL CLINICAL INFORMATION: Screening. Asymptomatic. COMPARISON: Mammography: This study is compared with prior exams dating back to 2016. TECHNIQUE: Digital breast tomosynthesis is performed in both the craniocaudal and mediolateral oblique views along with computer-aided detection (CAD). Synthesized 2D images are generated from the tomosynthesis. FINDINGS: The breasts are heterogeneously dense, which may obscure small masses (ACR BI-RADS breast composition Category c). There are no significant masses, abnormal calcifications, or other abnormalities. MM/MM tomosynthesis screening BI IMPRESSION: No mammographic evidence of malignancy. ASSESSMENT: BI-RADS BI-RADS 1 - Negative RECOMMENDATION: Routine annual mammography screening. 1 year F/U This examination should not preclude the clinical evaluation of a suspicious palpable abnormality. This patient's information was entered into a reminder system with a target due date for their next mammogram.
== END 2023-06-08 08:13 | disposition home or self-care (01) ==
LOC: HO.MAMMO 08:12
PROVIDERS: PCP Internal Medicine; Visit Provider Internal Medicine
DX: Z12.31 Encounter for screening mammogram for malignant neoplasm of breast (principal); Z13.820 Encounter for screening for osteoporosis; Z78.0 Asymptomatic menopausal state
CPT/HCPCS: 77063; 77067; 77080

== ENCOUNTER → 2023-06-08 08:45 | Outpatient (BNV) | payer MEDICARE, MEDICAID, SELFPAY | PROVIDERS: PCP Internal Medicine; Visit Provider Radiology Diagnostic Radiology | DX: Z12.31 Encounter for screening mammogram for malignant neoplasm of breast (principal) | CPT/HCPCS: 77063; 77067 ==

== ENCOUNTER 2023-10-17 11:24 | Outpatient (REF) | payer MEDICARE, MEDICAID, SELFPAY ==
--- NOTE | ~2023-10-17 | XR_ITS ---
EXAMINATION: XR CHEST CLINICAL INFORMATION: Cough COMPARISON: 04/30/2023 TECHNIQUE: 2 views of the chest were obtained. FINDINGS: No significant abnormality is noted involving the heart, lungs, mediastinum, bony thorax or soft tissues. XR/XR chest 2V IMPRESSION: Unremarkable examination.
== END 2023-10-17 11:25 | disposition home or self-care (01) ==
LOC: HO.XRAY 11:24
PROVIDERS: PCP Internal Medicine; Visit Provider Internal Medicine
DX: R05.9 Cough, unspecified (principal); K21.9 Gastro-esophageal reflux disease without esophagitis; J31.0 Chronic rhinitis
CPT/HCPCS: 71046

== ENCOUNTER 2024-02-25 12:30 | Outpatient (REF) | payer MEDICARE, MEDICAID, SELFPAY ==
--- NOTE | ~2024-02-25 | XR_ITS ---
EXAMINATION: XR CERVICAL SPINE CLINICAL INFORMATION: Neck pain COMPARISON: X-ray cervical spine on 09/09/2008 TECHNIQUE: 3 views of the cervical spine were obtained. FINDINGS: The visualized cervical vertebrae are intact with normal alignment. Odontoid process is intact with normal C1/C2 lateral masses alignment. Pre-dental interval is normal. Pre vertebral soft tissue is normal in thickness. XR/XR cervical spine 3V IMPRESSION: 1. Unchanged Normal cervical spine x-ray. 2. No fracture or dislocation of cervical spine is seen.
[2024-02-25 12:45] LABS: MANUAL DIFF FLAG NO
[2024-02-25 13:01] LABS: Basophils Absolute Auto 0.1 X10*3/uL (0.0-0.2); Basophils Percent Auto 1.2 % (0-2); Eosinophils Absolute Auto 0.2 X10*3/uL (0.0-0.4); Eosinophils Percent Auto 2.9 % (0-4); Hematocrit 38.6 % (37.0-47.0); Hemoglobin 12.6 g/dl (12.0-16.0); Imm Gran Abs Auto 0.04 X10*3/uL (0.00-0.03); Imm Gran Pct Auto 0.5 % (0.0-0.4); Lymphocytes Absolute Auto 2.1 X10*3/uL (1.2-4.9); Mean Corpuscular HGB Conc 32.6 g/dl (31.0-35.0); Mean Corpuscular Volume 95.1 fL (80.0-98.0); Mean Platelet Volume 9.3 fL (9.4-12.3); Monocytes Absolute Auto 0.9 X10*3/uL (0.1-1.2); Monocytes Percent Auto 11.3 % (2-11); Neutrophils Absolute Auto 4.8 x10*3/uL (2.0-8.3); Neutrophils Percent Auto 58.1 % (45-73); Platelet Count 294 X10*3/uL (160-400); Red Blood Count 4.06 X10*6/uL (4.20-5.50); Red Cell Distribution Width 13.1 % (11.0-16.0); White Blood Count 8.2 X10*3/uL (4.8-10.8)
[2024-02-25 13:36] LABS: Anion Gap 13 (12-20); Blood Urea Nitrogen 13 mg/dL (9-16); C Reactive Protein < 0.10 mg/dL (< or = 0.50); Carbon Dioxide 27 mmol/L (22-29); Chloride 105 mmol/L (96-108); Estimated Glomerular Filt Rate > 60; Glucose Fasting 106 mg/dL (60-99); Potassium 4.3 mmol/L (3.3-5.1); Sodium 141 mmol/L (135-145)
[2024-02-25 13:47] LABS: Erythrocyte Sedimentation Rate 15 MM/HR (0-20)
== END 2024-02-25 12:31 | disposition home or self-care (01) ==
LOC: HO.XRAY 12:30
PROVIDERS: PCP Internal Medicine; Visit Provider Internal Medicine
DX: M54.2 Cervicalgia (principal); K21.9 Gastro-esophageal reflux disease without esophagitis; M79.7 Fibromyalgia
CPT/HCPCS: 36415; 72040; 80048; 82550; 85025; 85652; 86140

== ENCOUNTER 2024-04-28 08:43 | Outpatient (AMB) | payer MEDICARE, MEDICAID, SELFPAY ==
[2024-04-28 08:47] VITALS: BP 120/76; PULSE 66; O2SAT 96; BMI 25.3
--- NOTE | 2024-04-28 08:47 | MHC.OFFVIS ---
Vital Signs 04/28/24 08:47 Height 5 ft 1 in Weight 134 lb BMI 25.3 BP 120/76 Blood Pressure Location Lt brachial Position Sitting Pulse 66 Pulse Source Pulse Oximeter Pulse Oximetry (%) 96 Oxygen Delivery Method Room Air Intake Visit Reasons: joint pain Intake Note: Patient presents today for joint pain. She was seen by Jessie Leung on 08/22/2022 for lower back pain. Patient still complains of pain in the back, and neck and shoulder pain. Allergies gabapentin Allergy (Mild, Verified 09/18/22 10:10) Nausea Medication List - Last Reconciled 04/28/24 by Hunter Espinoza MD acetaminophen (Tylenol) 650 mg PO Q6H PRN cyclobenzaprine 5 mg PO TID PRN lidocaine 5% 1 patch topical DAILY lorazepam 0.5 mg PO DAILY PRN pregabalin (Lyrica) 75 mg PO BEDTIME trazodone 50 mg PO BEDTIME PRN valacyclovir 1,000 mg PO BID PRN HPI Comments Details: This is a 59-year-old female with osteoarthritis who presents for follow-up. She was previously evaluated by Rheumatology and no evidence of an autoimmune rheumatic disease was found. She states that she has had an issues for many years. She has known scoliosis. She had spinal fusion more than 10 years ago. She states that she has chronic low back pain, right hip pain. The pain has been chronic and persistent for years but is generally worse in the middle of the night. She also has left-sided neck pain. She states that she has done physical therapy many times for many years with mixed results. She had a few epidural injections in her spine which gives her relief for a few months. She denies history of uveitis. Denies history suggestive of inflammatory bowel disease. She is unaware of any family history of an autoimmune rheumatic disease [facility] Medical History Lumbar spondylosis Depression Anxiety Lumbago with sciatica, right side Surgical History History of lumbar fusion Family History Mother Diabetes Heart disease Father Medical history unknown Social History Alcohol intake: never Patient Tobacco Use Status: Never used Tobacco e-Cigarette/Vaping Use: Never Used Review of Systems ENT Reports neck pain Musc Reports back pain, Reports arthralgias, Denies joint swelling and Reports neck pain Physical Exam Vital Signs: Last Vital Signs Pulse 66 04/28/24 08:47 BP 120/76 04/28/24 08:47 Pulse Ox 96 04/28/24 08:47 Oxygen Delivery Method Room Air 04/28/24 08:47 BMI result Body Mass Index 25.3 Const General: cooperative, healthy appearing and comfortable Nutritional Appearance: average body habitus Orientation/consciousness: patient oriented x3 Limitations: no limitations HEENT Head: Yes normocephalic and Yes atraumatic Mouth: moist mucous membranes Resp Effort & Inspection: normal respiratory effort and able to speak in complete sentences Auscultation: clear to auscultation bilaterally Skin General skin exam: no rashes or lesions noted Neuro General: patient oriented x3 Extrem Other: Mild osteoarthritic changes of both hands with no active synovitis Normal nailfold capillaroscopy Normal range of motion of hands, wrists, elbows and shoulders without pain Left upper trapezius muscle tenderness Bilateral lumbar paraspinal muscle tenderness Right buttock tenderness Positive straight leg raise test bilaterally Assessment & Plan Assessment & Plan (1) Lumbar spondylosis: Code(s): M47.816 - Spondylosis without myelopathy or radiculopathy, lumbar region Category: Medical Plan: This is a 59-year-old female with known lumbar osteoarthritis and scoliosis who presents for follow-up. Patient has had chronic spinal pain for many years. I think it is mostly due to degenerative arthritis and scoliosis. However given her HLA B27 positivity I would like to rule out sacroiliitis. Will check bilateral SI joint x-rays There is likely a component of muscle spasm contributing to her neck pain. I will prescribe short course of Flexeril Patient stated that she has had epidural injections in the past and they were helpful. Will refer patient to pain management Plan I spent 26 minutes reviewing patient's chart, evaluating patient, ordering diagnostic workup, counseling patient and documenting in the chart Orders: Orders XR sacroiliac joint min 3V Today G89.29 - Other chronic pain, M54.41 - Lumbago with sciatica, right side Referrals Pain Management Referral M47.816 - Spondylosis without myelopathy or radiculopathy, lumbar region Medications: New cyclobenzaprine Can cause dizziness/grogginess. Do not drive or operate heavy machinery if feeling as such 5 mg PO TID PRN 20 tabs 0RF muscle spasm Coding Level of Care Code Est Pt Level 4 (58123) Diagnoses Lumbar spondylosis M47.816
== END 2024-04-28 09:29 | disposition home or self-care (01) ==
PROVIDERS: PCP Internal Medicine; Visit Provider Student in an Organized Health Care Education/Training Program
DX: M47.816 Spondylosis without myelopathy or radiculopathy, lumbar region (principal)
CPT/HCPCS: 99214

== ENCOUNTER → 2024-04-28 08:43 | Outpatient (BNVA) | payer MEDICARE, MEDICAID, SELFPAY | PROVIDERS: PCP Internal Medicine; Visit Provider Student in an Organized Health Care Education/Training Program | DX: M47.816 Spondylosis without myelopathy or radiculopathy, lumbar region (principal) | CPT/HCPCS: 99212 ==

== ENCOUNTER 2024-05-07 14:24 | Outpatient (AMB) | payer MEDICARE, MEDICAID, SELFPAY ==
--- NOTE | 2024-05-07 14:32 | A.OFFVIS_ITS ---
Vital Signs 05/07/24 14:33 Height 5 ft 1 in Weight 139 lb BMI 26.3 BP 167/80 H Blood Pressure Location Lt brachial Position Sitting Pulse 72 Pulse Source Pulse Oximeter Pulse Oximetry (%) 97 Oxygen Delivery Method Room Air Intake Visit Reasons: Spondylosis without myelopathy or radiculopathy Allergies gabapentin Allergy (Mild, Verified 05/07/24 14:33) Nausea Medication List - Last Reconciled 05/07/24 by Nel Christy acetaminophen (Tylenol) 650 mg PO Q6H PRN cyclobenzaprine 5 mg PO TID PRN lidocaine 5% 1 patch topical DAILY lorazepam 0.5 mg PO DAILY PRN pregabalin (Lyrica) 75 mg PO BEDTIME trazodone 50 mg PO BEDTIME PRN valacyclovir 1,000 mg PO BID PRN HPI Comments Details: Ana is a very pleasant 59-year-old female who presents the office today for evaluation management of her right lower back pain. She has been suffering with this pain since before 2010. In 2010 she underwent anterior and posterior lumbar fusion. After the fusion she had approximately 2 years of relief but then pain returned and has been progressively worsening since She endorses right lower back pain with radiation down the right leg Pain is worse with movement, improves with heat Pain today is rated as an 8/10, constant throughout the day Completed physical therapy without improvement of her symptoms. Five or 6 years ago she underwent injections at [facility] but has not had any since Has never tried chiropractor, acupuncture or massage Currently taking Lyrica daily but pain persists. She is also taking Motrin 600 mg as needed that provides her minimal relief Denies red flag symptoms including new loss of bowel, bladder or saddle anesthesia In terms of muscle damage condition is described as stabbing, sharp, burning, tingling, pins and needles Denies current use of anticoagulants Denies implantable devices, pacemaker defibrillator Denies current use of nicotine, tobacco, alcohol or illicit substances [facility] Medical History Lumbar spondylosis Depression Anxiety Lumbago with sciatica, right side Surgical History History of lumbar fusion Family History Mother Diabetes Heart disease Father Medical history unknown Social History Alcohol intake: never Patient Tobacco Use Status: Never used Tobacco e-Cigarette/Vaping Use: Never Used Review of Systems Const All systems reviewed & are unremarkable except as noted in HPI and below Physical Exam Vital Signs: Last Vital Signs Pulse 72 05/07/24 14:33 BP 167/80 H 05/07/24 14:33 Pulse Ox 97 05/07/24 14:33 Oxygen Delivery Method Room Air 05/07/24 14:33 BMI result Body Mass Index 26.3 General: awake, alert, oriented. Answers questions appropriately. Fully engaged in examination. Skin: warm, dry, intact HEENT: Normocephalic. Hearing intact. Cardiac: External chest normal in appearance. Respiratory: No cough, audible wheezing or stridor. Abdomen: without gross distension. MS: No obvious swelling or deformities. Able to stand on bilateral tiptoes and bilateral heels.? Able to transition from sit to stand unassisted. Ambulates with bilaterally normal heel strike and toe off Scoliosis SLR positive on the right Nontender over bilateral PSIS Tenderness to midline lumbar vertebrae and lumbar paraspinal muscles Bilateral lower extremity strength 5/5 Negative footdrop, negative clonus Decreased lumbar range of motion Valsalva negative Facet loading positive Neurological: Oriented to person, place, time and situation. Thought process intact. No gait abnormalities appreciated. Psychiatric: Appropriate mood and affect. Good judgment and insight. Results Reviewed Results Reviewed: 09/20/22 XR/XR lumbar spine 2-3V IMPRESSION: * Status post L4-S1 spinal fusion, fixating stable grade 1 anterolisthesis of L5 on S1. No evidence of hardware fracture or complication. * Advanced spondylosis of the lumbar spine at L3-L4, as above detailed. * Levoconvex curvature of the lumbar spine. * No acute osseous abnormality in the pelvis appreciated on this limited single view. Assessment & Plan Assessment & Plan (1) Lumbar spondylosis: Code(s): M47.816 - Spondylosis without myelopathy or radiculopathy, lumbar region Category: Medical (2) Lumbar radiculopathy: Code(s): M54.16 - Radiculopathy, lumbar region Category: Medical (3) Post laminectomy syndrome: Code(s): M96.1 - Postlaminectomy syndrome, not elsewhere classified Category: Medical Plan Patient presented to the office today for evaluation and management of her chronic lower back pain History, physical exam and provocative testing consistent with post laminectomy syndrome and right lumbar radiculopathy Patient has exhausted conservative therapy including greater than 6 months of PT, home exercise program, [id number] medications, topical medications and nonsteroidal anti-inflammatory medications all without improvement of her sympto ms MRI lumbar spine without contrast ordered for review. Discussed treatment options with the patient today including SCS trial/implant with [employer]. She was given a pamphlet to review at home. Patient will follow up after MRI and we will discuss this further All questions and concerns were answered, patient agrees with the plan. Follow up after MRI, sooner if needed Orders: Orders MR lumbar spine wo con Today M54.16 - Radiculopathy, lumbar region Coding Level of Care Code New Pt Level 4 (71310) Complex EM visit Add On G2211 Diagnoses Lumbar spondylosis M47.816 Lumbar radiculopathy M54.16 Post laminectomy syndrome M96.1
[2024-05-07 14:33] VITALS: BP 167/80; PULSE 72; O2SAT 97; BMI 26.3
== END 2024-05-07 15:18 | disposition home or self-care (01) ==
PROVIDERS: PCP Internal Medicine; Visit Provider Registered Nurse Emergency
DX: M47.816 Spondylosis without myelopathy or radiculopathy, lumbar region (principal); M54.16 Radiculopathy, lumbar region; M96.1 Postlaminectomy syndrome, not elsewhere classified
CPT/HCPCS: 99204; 99214; G2211

== ENCOUNTER → 2024-05-07 14:24 | Outpatient (BNVA) | payer MEDICARE, MEDICAID, SELFPAY | PROVIDERS: PCP Internal Medicine; Visit Provider Registered Nurse Emergency | DX: M47.816 Spondylosis without myelopathy or radiculopathy, lumbar region (principal); M96.1 Postlaminectomy syndrome, not elsewhere classified; M54.16 Radiculopathy, lumbar region | CPT/HCPCS: 99202 ==

== ENCOUNTER 2024-06-13 17:32 | Outpatient (REF) | payer MEDICARE, MEDICAID, SELFPAY | END 2024-06-13 17:33 | disposition home or self-care (01) | LOC: HO.MRI 17:32 | PROVIDERS: PCP Internal Medicine; Visit Provider Registered Nurse Emergency | DX: M54.16 Radiculopathy, lumbar region (principal) | CPT/HCPCS: 72148 ==

== ENCOUNTER → 2024-06-13 17:32 | Outpatient (BNV) | payer MEDICARE, MEDICAID, SELFPAY | PROVIDERS: PCP Internal Medicine; Visit Provider Radiology Diagnostic Radiology | DX: M54.16 Radiculopathy, lumbar region (principal) | CPT/HCPCS: 72148 ==

== ENCOUNTER 2024-08-09 08:05 | Outpatient (REF) | payer MEDICARE, MEDICAID, SELFPAY | END 2024-08-09 08:06 | disposition home or self-care (01) | LOC: HO.MAMMO 08:05 | PROVIDERS: PCP Internal Medicine; Visit Provider Internal Medicine | DX: Z12.31 Encounter for screening mammogram for malignant neoplasm of breast (principal) | CPT/HCPCS: 77063; 77067 ==

== ENCOUNTER → 2024-08-09 08:15 | Outpatient (BNV) | payer MEDICARE, MEDICAID, SELFPAY | PROVIDERS: PCP Internal Medicine; Visit Provider Internal Medicine | DX: Z12.31 Encounter for screening mammogram for malignant neoplasm of breast (principal) | CPT/HCPCS: 77063; 77067 ==

== ENCOUNTER 2024-12-17 10:55 | Outpatient (RCR) | payer MEDICARE, MEDICAID, SELFPAY ==
--- NOTE | 2024-12-03 15:42 | MHC.PT.EP ---
[facility] [place] Office [place] [facility] [place] [facility] [address] Raman Munoz [address] [phone] F: [phone] F: [phone] F: [phone] F: [phone] Physical Therapy Plan of Care Date of Evaluation: 12/03/24 Date of Surgery: Diagnosis: RIGHT sided sciatica, low back pain, neck pain (MD Dx) Pt hx of lumbar fusion L4-S1 (2010) RS Assessment: Ana is a pleasant 59 y.o. female who is referred to PT by Dr. Kodi Rankin MD, with Dx of RIGHT sided sciatica, low back pain, neck pain. She has a history of lumbar fusion L4-S1 (2010), has core weakness. Her neck pain presents as postural as she has hx of scoliosis. Patient impairments include chronic pain in neck and low back, R LE radicular sxs, limited lumbar and cervical ROM, weakness in core musculature, bilateral hips and shoulders. Patient current functional limitations are difficulty bending/squatting, prolonged walking or sitting, reading, turning head. Patient will benefit from skilled PT to address aforementioned impairments and functional limitations to meet established goals. Frequency and Duration: The patient will be seen 2x.week for 4 weeks Short Term Goals: 2 weeks Patient demonstrates consistency and independence with HEP to self manage symptoms. Investment Broker Goals: 4 weeks Patient presents with increased cervical rotation 50 degrees to improve mobility. Patient presents with increased R hip flexion strength 4-/5 to be able to bend/squat more easily. Treatment Plan: Modalities to reduce pain, spasms and effusion. Manual therapy to restore motion and function. Therapeutic exercise to improve strength and flexibility. Neuromuscular re-education for posture and balance. Therapeutic activities to return to functional activities of daily living. Electronically signed by: Natividad Stevens, PT, DPT Please sign and return to therapist. Thank you for your referral.
--- NOTE | 2025-03-02 10:49 | MHC.PT.DC ---
[facility] [place] [facility] [place] [facility] [place] [facility] [address] Raman Munoz [address] [phone] F: [phone] F: [phone] F: [phone] F: [phone] Physical Therapy Discharge Report Diagnosis: RIGHT sided sciatica, low back pain, neck pain ( Dx) Pt hx of lumbar fusion L4-S1 (2010) RS Date of Surgery: Date of Evaluation: 12/03/24 Date of Discharge: 03/02/25 Treatments to Date: 3 Cancellations to Date: 7 No Shows to Date: 0 Discharge Status: Discharge Summary: Ana was only seen for 3 sessions of PT (evaluation and 2 FUP sessions). Due to limited visits, difficulty determining effectiveness of PT interventions on patient condition. She cancelled all of her visits after her session on 12/17/24. Therefore she is discharged from PT at this time. Electronically signed by: Natividad Stevens, PT, DPT Please sign and return to therapist. Thank you for your referral.
== END 2025-03-02 10:49 | disposition home or self-care (01) ==
LOC: HO.PT 10:55
PROVIDERS: PCP Internal Medicine; Visit Provider Internal Medicine
DX: M54.31 Sciatica, right side (principal); M54.50 Low back pain, unspecified
CPT/HCPCS: 97110; 97112; 97140; 97162

== ENCOUNTER 2024-12-22 14:10 | Outpatient (AMB) | payer MEDICARE, MEDICAID, SELFPAY ==
--- NOTE | 2024-12-22 14:27 | A.OFFPC_ITS ---
Intake Visit Reasons: Routine - see comments Wellness Program Manager Required: No Accompanied by: Self / Same As Patient Allergies gabapentin Allergy (Mild, Verified 12/22/24 14:29) Nausea Tobacco use date assessed: 12/22/24 Dental Screening Dental Screen Date: 12/22/24 Did you have a dental visit in the last 12 months?: Yes Did you have a dental problem in the last 6 months where you did not have access to dental care?: No Was dental information given to patient?: Patient has dentist HPI HPI Comments History of Present Illness Details Patient presented to the office today for evaluation and management of her chronic lower back pain History, physical exam and provocative testing consistent with post laminectomy syndrome and right lumbar radiculopathy Patient has exhausted conservative therapy including greater than 6 months of PT, home exercise program, [id number] medications, topical medications and nonsteroidal anti-inflammatory medications all without improvement of her symptoms MRI lumbar spine without contrast ordered for review. Discussed treatment options with the patient today including SCS trial/implant with [facility]. She was given a pamphlet to review at home. Patient will follow up after MRI and we will discuss this further lorazepam PFSH Medical History Lumbar spondylosis Depression Anxiety Lumbago with sciatica, right side Surgical History History of lumbar fusion Family History Mother Diabetes Heart disease Father Medical history unknown Social History Housing: House Alcohol intake: never Patient Tobacco Use Status: Never used Tobacco e-Cigarette/Vaping Use: Never Used Cognitive needs: No Hearing needs: No Vision needs: No Questionnaire PHQ-9 Over the last 2 weeks, how often have you been bothered by any of the following problems? 1. Little interest or pleasure in doing things: not at all 2. Feeling down, depressed, or hopeless: not at all 3. Trouble falling or staying asleep, or sleeping too much: not at all 4. Feeling tired or having little energy: not at all 5. Poor appetite or overeating: not at all 6. Feeling bad about yourself - or that you are a failure or have let yourself or your family down: not at all 7. Trouble concentrating on things, such as reading the newspaper or watching television: not at all 8. Moving or speaking so slowly that other people could have noticed. Or the opposite - being so fidgety or restless that you have been moving around a lot more than usual: not at all 9. Thoughts that you would be better off or of hurting yourself in some way: not at all Total score: 0 Source: Developed by Drs. Alverto Vang, Becca Fountain, Dani Cruz and colleagues, with an educational quin from [employer]. Thrive Questionnaire Date Thrive assessed: 12/22/24 I am a: Patient What is your living situation today?: I have a steady place to live Within the past 12 months, did the food you bought not last and you didn't have the money to get more?: Never true Within the past 12 months, did you worry whether your food would run out before you got money to buy more?: Never true Do you have trouble paying for medicines?: No Do you have trouble getting transportation to medical appointments?: No Do you have trouble paying your heating and electricity bill?: No Do you have trouble taking care of your child, family member or friend?: No Do you have trouble with day-to-day activities such as bathing, preparing meals, shopping, managing finances, etc.?: No Are you currently unemployed and looking for a job?: No Are you interested in more education?: No Please select the resources that you would like help with: None THRIVE Score: 0 AUDIT C Alcohol Use Questionnaire (AUDIT-C) 1. How often do you have a drink containing alcohol?: Never Total Score: 0 GERSON-7 AMB Questionnaire GERSON-7 Date GERSON - 7 assessed: 12/22/24 Feeling nervous, anxious, or on edge: 0 = Not at all Not being able to stop or control worryin = Not at all Worrying too much about different things: 0 = Not at all Trouble relaxin = Not at all Being so restless that it is hard to sit still: 0 = Not at all Becoming easily annoyed or irritable: 0 = Not at all Feeling afraid as if something awful might happen: 0 = Not at all Total GERSON-7 score (0-4 normal; 5-9 mild; 10-14 moderate; 15-21 severe): 0 Source: Developed by Drs. Alverto Vang, Becca Fountain, Dani Cruz and colleagues, with an educational quin from [employer]. Physical exam (Primary Care) Tobacco/Smoking Status: Tobacco use Status Tobacco use date assessed 12/22/24 12/22/24 14:31 Patient Tobacco Use Status Never used Tobacco 12/22/24 14:27 e-Cigarette/Vaping Use Never Used 12/22/24 14:27 PHQ-9: PHQ-9 Score PHQ-9: Total score 0 12/22/24 14:31 Thrive Assessment: Date of Thrive Assessment Date Thrive assessed 12/22/24 12/22/24 14:31 Coding
[2024-12-22 14:39] VITALS: BP 150/84; PULSE 62; RESP 16; TEMP 36.9; O2SAT 97; BMI 26.3
--- NOTE | 2024-12-22 14:41 | A.OFFPC_ITS ---
Vital Signs 12/22/24 14:39 Height 5 ft 1 in Weight 63.049 kg BMI 26.3 BP 150/84 H Respiration 16 Pulse 62 Pulse Source Pulse Oximeter Temp 98.4 F Temp Source Oral Pulse Oximetry (%) 97 Oxygen Delivery Method Room Air Intake Visit Reasons: Routine - see comments Allergies gabapentin Allergy (Mild, Verified 12/22/24 14:35) Nausea Medication List - Last Reconciled 12/22/24 by EDVIN Cuello acetaminophen (Tylenol) 650 mg PO Q6H PRN amlodipine 5 mg PO DAILY cyclobenzaprine 5 mg PO TID PRN fexofenadine (Allergy Relief (fexofenadine)) 180 mg PO DAILY lorazepam 0.5 mg PO DAILY PRN pregabalin (Lyrica) 75 mg PO BEDTIME trazodone 50 mg PO BEDTIME PRN valacyclovir 1,000 mg PO BID PRN HPI HPI Comments History of Present Illness Details lorazepam dizzy, drifting to right . no spinning blurred vision History of Present Illness The patient is a 59-year-old female presenting for routine follow-up with ongoing management of her chronic back and neck pain, as well as associated symptoms. She has had longstanding chronic low back pain with history of lumbar fusion in 2010. Has been following with pain management as well as Rheumatology due to post-laminectomy syndrome with lumbar spondylosis and right lower extremity radiculopathy. She is able to ambulate but feels she does deviate slightly to the right with associated weakness. No paresthesias. No saddle anesthesia or bowel/bladder dysfunction. She is also reporting left-sided neck pain radiating from the cervical spine. Pain radiates into the right shoulder but is most prominent in the neck and upper trapezius. There is occasional radiation into the left upper arm without any weakness though is guarded when using the left upper extremity. No paresthesias. She has been following with Physical therapy for nearly a month without much improvement. She is taking Lyrica with some relief but is hesitant to increase her dose. She was previously taking cyclobenzaprine which was somewhat helpful and is also using Tylenol. She was recommended for spinal cord stimulator but is hesitant to pursue further surgical intervention. She does not required the use of any assistive devices Recent dizziness has emerged, coupled with increased visual strain and infrequent headaches, perceived as wooziness without spinning sensations. Reports consuming minimal intake of water. Anxiety has been intermittently managed with Ativan as required She has been hypertensive at this visit along with priors. She feels this is r/t pain. Review of Systems - Musculoskeletal: Reports chronic pain in back, left shoulder, and right leg; denies weakness or numbness in left arm. - Neurological: Reports dizziness, imbal ance; denies loss of consciousness. - Cardiovascular: Denies chest pain, pal pitations. - Ophthalmologic: Reports large vision; denies double vision or vision loss. - Psychological: Reports anxiety. - General: Reports headaches and occasio nal feeling woozy, denies significant weakness or fatigue. Vital Signs - Blood Pressure: 160/88 mm Hg Health Maintenance - Discussed importance of adequate hydra tion to prevent dehydration-related dizziness. - Recommended balanced nutritional intak e to prevent hypoglycemia. Physical Exam Constitutional: Awake and alert, no apparent distress Heart: RRR, S1S2, no murmurs, no edema Lungs: CTA bilaterally, no wheezing Extremities: No calf tenderness, 5/5 strength in the left lower extremity, 3/5 strength in the right lower extremity, two plus patellar reflexes bilaterally Skin: Warm and dry Neuro: Alert and oriented x 3, sensation intact, occasional dizziness, no balance issues noted Assessment and Plan 1. Hypertension Considering persistent high blood pressure, I initiated amlodipine 5 mg daily to manage the patient's hypertension, possibly complicated by uncontrolled pain levels 2. Chronic Back Pain- post-laminectomy s yndrome, lumbar spondylosis with radiculopathy The patient's chronic back pain management includes the continued use of Lyrica, emphasizing its effect on nerve-related pain symptoms. Physical therapy continuation was advised. Follow-up with pain management this month as scheduled. Cyclobenzaprine added as needed. Declines further increase of Lyrica 3. Cervical radiculopathy Continue with physical therapy, though has not improved pain. MRI of the cervical spine ordered. Cyclobenzaprine prescription was provided for muscle relaxation. Follow-up with pain management 4. Orthostatic lightheadedness Addressed dizziness by recommending increased hydration and balanced nutrition to alleviate contributing factors, emphasizing the importance of fluid intake and regular meals. 5. Anxiety Provided a limited supply of lorazepam to manage episodic anxiety, with instructions to use sparingly, given potential side effects and dependency. Mass pat reviewed Patient was informed and verbally consented to the use of an ambient scribe for clinic note documentation during this visit. Discussion Notes During this visit, we discussed the patient's chronic pain complaints and the persistent hypertensive readings. Amlodipine was prescribed to address hypertension, considering the risk of stroke and hypertensive complications. The patient and I reviewed options for pain management, emphasizing the conservative continuation of Lyrica and trial of cyclobenzaprine. The risks and expected out comes were clarified, including further imaging techniques to elucidate spine- related pain sources. We addressed dizziness, recommending hydration and dietary adjustments, and managed anxiety with lorazepam, maintaining focus on minimal usage due to dependence potential. I advised on return precautions should symptoms worsen or persist. We evaluated necessary follow-ups with pain management and encouraged compliance with next steps including planned imaging studies. Patient Instructions - Start taking amlodipine 5 mg daily for high blood pressure. - Continue Lyrica as prescribed for pain management. - Use cyclobenzaprine for muscle spasms as needed. - Drink at least 64 ounces of water yuni y to prevent dehydration and associated dizziness. - Maintain a balanced diet with regular meals to manage dizziness and energy levels. - Use lorazepam sparingly for anxiety, n o more than directed. - Follow up with scheduled imaging appoi ntments for your spine. - Monitor for any swelling in legs and r eport if it occurs. - Attend your food critic appointmen t as scheduled. - Return for further evaluation if sympt oms worsen or new symptoms develop. [facility] Medical History (Updated 12/22/24 @ 17:39 by EDVIN Cuello) Hypertension Lumbar spondylosis Depression Anxiety Lumbago with sciatica, right side Surgical History History of lumbar fusion Family History Mother Diabetes Heart disease Father Medical history unknown Social History Alcohol intake: never Patient Tobacco Use Status: Never used Tobacco e-Cigarette/Vaping Use: Never Used Physical exam (Primary Care) Vital Signs: Last Vital Signs Temp 98.4 F 12/22/24 14:39 Pulse 62 12/22/24 14:39 Resp 16 12/22/24 14:39 BP 150/84 H 12/22/24 14:39 Pulse Ox 97 12/22/24 14:39 Oxygen Delivery Method Room Air 12/22/24 14:39 BMI result Body Mass Index 26.3 Tobacco/Smoking Status: Tobacco use Status Patient Tobacco Use Status Never used Tobacco 12/22/24 14:42 e-Cigarette/Vaping Use Never Used 12/22/24 14:42 Results Reviewed Results Reviewed: MR/MR lumbar spine wo con IMPRESSION: 1. No significant interval change from the prior examination. Surgical fusion of L4-S1 with hardware and associated laminectomies. The central canal is completely decompressed spanning L4-5 and L5-S1. 2. Facet hypertrophy contacts the right greater than left posterior margins of the traversing S1 nerve roots at L5-S1 without impingement. This is of unknown/uncertain clinical significance. Correlate for right greater than left S1 radiculopathy. 3. No evidence of arachnoiditis or nerve root clumping. 4. There is a mild dextroconvex scoliosis, unchanged. Coding Level of Care Code New Pt Level 4 (31884) Complex EM visit Add On G2211 Diagnoses Chronic bilateral low back pain with right-sided sciatica M54.41; G89.29 Back pain laterality: bilateral Chronicity: chronic Lumbar spondylosis M47.816 Post laminectomy syndrome M96.1 Hypertension I10 Lightheadedness R42 Cervical radiculopathy M54.12 Assessment & Plan Assessment & Plan (1) Lumbago with sciatica, right side: Code(s): M54.41 - Lumbago with sciatica, right side Category: Medical Qualifiers: Back pain laterality: bilateral Chronicity: chronic Qualified Code(s): M54.41 - Lumbago with sciatica, right side; G89.29 - Other chronic pain Plan: Continue Lyrica. Follow-up with pain management. Cyclobenzaprine added (2) Lumbar spondylosis: Code(s): M47.816 - Spondylosis without myelopathy or radiculopathy, lumbar region Category: Medical Plan: See above (3) Post laminectomy syndrome: Code(s): M96.1 - Postlaminectomy syndrome, not elsewhere classified Category: Medical Plan: See above (4) Hypertension: Code(s): I10 - Essential (primary) hypertension Category: Medical Plan: Amlodipine 5 mg daily initiated. Follow-up in 6 weeks in the office. Low- sodium diet. Will request follow-up with nursing for blood pressure recheck (5) Lightheadedness: Code(s): R42 - Dizziness and giddiness Category: Medical (6) Cervical radiculopathy: Code(s): M54.12 - Radiculopathy, cervical region Category: Medical Plan: Has failed PT. MRI cervical spine ordered. Continue lyrica, added c cyclobenzaprine. Continue home exercises Plan Follow-up with RN for blood pressure check in 1-2 weeks. Follow-up in the office in 6 weeks. Labs ordered. Orders: Orders Lipid Panel Today G89.29 - Other chronic pain, M47.816 - Spondylosis without myelopathy or radiculopathy, lumbar region, M54.41 - Lumbago with sciatica, right side, M96.1 - Postlaminectomy syndrome, not elsewhere classified, R29.6 - Repeated falls, R53.83 - Other fatigue Complete Blood Count Auto Diff Today G89.29 - Other chronic pain, M47.816 - Spondylosis without myelopathy or radiculopathy, lumbar region, M54.41 - Lumbago with sciatica, right side, M96.1 - Postlaminectomy syndrome, not elsewhere classified, R29.6 - Repeated falls, R53.83 - Other fatigue Hemoglobin A1c Today G89.29 - Other chronic pain, M47.816 - Spondylosis without myelopathy or radiculopathy, lumbar region, M54.41 - Lumbago with sciatica, right side, M96.1 - Postlaminectomy syndrome, not elsewhere classified, R29.6 - Repeated falls, R53.83 - Other fatigue, Z13.1 - Encounter for screening for diabetes mellitus, Z13.220 - Encounter for screening for lipoid disorders Basic Metabolic Panel Today G89.29 - Other chronic pain, M47.816 - Spondylosis without myelopathy or radiculopathy, lumbar region, M54.41 - Lumbago with sciatica, right side, M96.1 - Postlaminectomy syndrome, not elsewhere classified, R29.6 - Repeated falls, R53.83 - Other fatigue TSH reflex Free T4 Today G89.29 - Other chronic pain, M47.816 - Spondylosis without myelopathy or radiculopathy, lumbar region, M54.41 - Lumbago with sciatica, right side, M96.1 - Postlaminectomy syndrome, not elsewhere classified, R29.6 - Repeated falls, R53.83 - Other fatigue Vitamin D 25-OH Total Today G89.29 - Other chronic pain, M47.816 - Spondylosis without myelopathy or radiculopathy, lumbar region, M54.41 - Lumbago with sciatica, right side, M96.1 - Postlaminectomy syndrome, not elsewhere classified, R29.6 - Repeated falls, R53.83 - Other fatigue MR cervical spine wo con Today M54.12 - Radiculopathy, cervical region Medications: New cyclobenzaprine 5 mg PO TID PRN 90 tabs 0RF muscle spasm amlodipine 5 mg PO DAILY 90 tabs 1RF lorazepam 0.5 mg PO DAILY PRN 10 tabs 0RF anxiety Refilled pregabalin (Lyrica) 75 mg PO BEDTIME 90 caps 1RF
--- OUTSIDE RECORDS SUMMARY | 2024-12-22 15:44 | XMS_ITS | Clinical Summary ---
Author Organization [facility] Address [address] [place] [address] Care Team Providers Care Bond Writer Name Role Phone Kodi Roach MD Primary Care Provider [phone] Social History Tobacco Use Types Packs/Day Years Used Date Smoking Tobacco: Never Assessed Sex and Gender Information Value Date Recorded Sex Assigned at Not on file Gender Identity Not on file Sexual Orientation Not on file Plan of Treatment Health Maintenance Due Date Last Done Comments Hepatitis C Screening 1965 COVID-19 Vaccine (#1) 1963 Depression Screening 1975 Preventative Health Evaluation 1981 DTap / Tdap / Td (1 - Tdap) 1982 Cervical Cancer Screening (P ap Smear) 1984 Colon Cancer Screening (Colonoscopy) 2008 Breast Cancer Screening (Mammogram) 2013 Shingrix-Zoster Vaccine (1 of 2) 2013 Influenza Vaccine (#1) 2024 RSV Adult > 60+ Yrs or Pregn ant (1 - 1-dose 75+ series) 2038 Hepatitis B Vaccines Aged Out No long er eligible based on patient's age to complete this topic Pneumococcal Vaccine Aged Out No long er eligible based on patient's age to complete this topic RSV Ped < 20 months Aged Out No longe r eligible based on patient's age to complete this topic Care Teams Bond Writer Relationship Specialty Start Date End Date Kodi Roach MD [address] [place] [address] [place] [address] PCP - General Household Cook 04/22/20
== END 2024-12-22 14:27 | disposition home or self-care (01) ==
LOC: HO.HMCHD 14:11
PROVIDERS: PCP Physician Assistant; Visit Provider Physician Assistant
DX: M54.41 Lumbago with sciatica, right side (principal); G89.29 Other chronic pain; M47.816 Spondylosis without myelopathy or radiculopathy, lumbar region; M96.1 Postlaminectomy syndrome, not elsewhere classified; I10 Essential (primary) hypertension; R42 Dizziness and giddiness; M54.12 Radiculopathy, cervical region

== ENCOUNTER → 2024-12-22 14:10 | Outpatient (BNVA) | payer MEDICARE, MEDICAID, SELFPAY | PROVIDERS: PCP Internal Medicine; Visit Provider Physician Assistant | DX: M54.41 Lumbago with sciatica, right side (principal); M47.816 Spondylosis without myelopathy or radiculopathy, lumbar region; M96.1 Postlaminectomy syndrome, not elsewhere classified; M54.12 Radiculopathy, cervical region; I10 Essential (primary) hypertension; R42 Dizziness and giddiness; G89.29 Other chronic pain; R29.6 Repeated falls; R53.83 Other fatigue | CPT/HCPCS: 99202 ==

== ENCOUNTER 2024-12-26 10:13 | Outpatient (REF) | payer MEDICARE, MEDICAID, SELFPAY ==
[2024-12-26 10:26] LABS: MANUAL DIFF FLAG NO
[2024-12-26 10:38] LABS: Basophils Absolute Auto 0.1 X10*3/uL (0.0-0.2); Basophils Percent Auto 1.2 % (0-2); Eosinophils Absolute Auto 0.3 X10*3/uL (0.0-0.4); Eosinophils Percent Auto 4.5 % (0-4); Hematocrit 37.8 % (37.0-47.0); Hemoglobin 12.6 g/dl (12.0-16.0); Imm Gran Abs Auto 0.02 X10*3/uL (0.00-0.03); Imm Gran Pct Auto 0.3 % (0.0-0.4); Lymphocytes Absolute Auto 2.1 X10*3/uL (1.2-4.9); Mean Corpuscular HGB Conc 33.3 g/dl (31.0-35.0); Mean Corpuscular Hemoglobin 30.8 pg (27.0-33.0); Mean Corpuscular Volume 92.4 fL (80.0-98.0); Mean Platelet Volume 9.2 fL (9.4-12.3); Monocytes Absolute Auto 0.8 X10*3/uL (0.1-1.2); Neutrophils Absolute Auto 3.6 x10*3/uL (2.0-8.3); Platelet Count 286 X10*3/uL (160-400); Red Blood Count 4.09 X10*6/uL (4.20-5.50); Red Cell Distribution Width 13.3 % (11.0-16.0); White Blood Count 6.8 X10*3/uL (4.8-10.8)
--- OUTSIDE RECORDS SUMMARY | 2024-12-26 10:45 | XMS_ITS | Clinical Summary ---
Author Organization [facility] Address [address] [place] [address] Care Team Providers Care Nail Kegger Name Role Phone Kodi Roach MD Primary Care Provider [phone] Social History Tobacco Use Types Packs/Day Years [...] age to complete this topic Care Teams Nail Kegger Relationship Specialty Start Date End Date Kodi Roach MD [address] [place] [address] [place] [address] PCP - General Gas Plant Repairer 04/22/20
[2024-12-26 11:06] LABS: Estimated Average Glucose 120 mg/dL; Hemoglobin A1C 128.6988 umol/L; Hemoglobin A1c % 5.8 % (<6.0); Total Hemoglobin (HGBA1C) 3211.8022 umol/L
[2024-12-26 11:12] LABS: Anion Gap 10 (12-20); Blood Urea Nitrogen 11 mg/dL (9-16); Calcium 9.8 mg/dL (8.4-10.2); Carbon Dioxide 29 mmol/L (22-29); Chloride 105 mmol/L (96-108); Cholesterol 192 mg/dL (<200); Estimated Glomerular Filt Rate > 60; Glucose Random 108 mg/dL (60-115); HDL Cholesterol 46 mg/dL (>40); LDL Cholesterol Calculated 109 mg/dL (<100); Sodium 140 mmol/L (135-145); Triglycerides 188 mg/dL (<150)
[2024-12-26 11:31] LABS: TSH reflex Free T4 2.26 uIU/mL (0.32-4.0); Vitamin D 25-OH Total 21.5 ng/mL (>30)
== END 2024-12-26 10:14 | disposition home or self-care (01) ==
LOC: HO.LAB 10:13
PROVIDERS: PCP Physician Assistant; Visit Provider Physician Assistant
DX: G89.29 Other chronic pain (principal); R53.83 Other fatigue; R29.6 Repeated falls; M47.816 Spondylosis without myelopathy or radiculopathy, lumbar region; M96.1 Postlaminectomy syndrome, not elsewhere classified; M54.41 Lumbago with sciatica, right side; Z13.1 Encounter for screening for diabetes mellitus; Z13.220 Encounter for screening for lipoid disorders; Z13.6 Encounter for screening for cardiovascular disorders
CPT/HCPCS: 36415; 80048; 80061; 82306; 83036; 84443; 85025

== ENCOUNTER 2025-01-03 10:46 | Outpatient (REF) | payer MEDICARE, MEDICAID, SELFPAY ==
--- NOTE | ~2025-01-03 | MR_ITS ---
EXAMINATION: MR CERVICAL SPINE WITHOUT CONTRAST CLINICAL INFORMATION: Radiculopathy, cervical region. COMPARISON: None available. TECHNIQUE: MRI of the cervical spine was obtained using routine sequences without contrast. FINDINGS: Craniocervical junction is intact. Normal position of the cerebellar tonsils. No bone marrow STIR signal abnormality. There is an intrinsic hyperintense T1 bone lesion in the vertebral body, T3. Reverse curvature apex at C4-5. Decreased intervertebral disc height and signal at C4-5. Grade 1 anterolisthesis C5-6 and C7-T1 level. Marginal osteophyte formation C4-5 and C5-6. There is mild buckling deformity of the dorsal aspect of the thecal sac secondary to ligamentum flavum hypertrophy at C5-6. Cervical spinal cord signal is normal. C2-3: No disc herniation. No neuroforamina stenosis. C3-4: Central disc osteophyte complex formation resulting in ventral deformity of spinal cord. No neuroforamina stenosis. C4-5: Central disc osteophyte complex formation resulting in ventral deformity of the spinal cord. No neuroforamina stenosis. C5-6: Central disc osteophyte complex formation resulting in ventral deformity of the thecal sac. No neuroforamina stenosis. Facet joint hypertrophy bilaterally. C6-7: Broad-based disc osteophyte complex formation. No cord compression. No disc herniation. No neuroforamina stenosis. C7-T1: No disc herniation. No neuroforamina stenosis. No prevertebral compartment hematoma, mass or fluid collection. Flow-void signal within the main vessels is normal. Codominant vertebral arteries. MR/MR cervical spine wo con IMPRESSION: Cervical spondylosis C3-4, C4-5, and C5-6 resulting in reverse curvature apex at C4-5 and central spinal canal stenosis without cord compression, cord edema and or myelopathy. Intraosseous hemangioma, T3. Electronically signed by: Carl Christianson MD 01/05/2025 07:50 AM EDT
== END 2025-01-03 10:47 | disposition home or self-care (01) ==
LOC: HO.MRI 10:46
PROVIDERS: PCP Physician Assistant; Visit Provider Physician Assistant
DX: M54.12 Radiculopathy, cervical region (principal)
CPT/HCPCS: 72141

== ENCOUNTER → 2025-01-03 10:51 | Outpatient (BNV) | payer MEDICARE, MEDICAID, SELFPAY | PROVIDERS: PCP Physician Assistant; Visit Provider Radiology Diagnostic Radiology | DX: M47.812 Spondylosis without myelopathy or radiculopathy, cervical region (principal); M48.02 Spinal stenosis, cervical region; D18.09 Hemangioma of other sites | CPT/HCPCS: 72141 ==

== ENCOUNTER → 2025-01-08 09:53 | Outpatient (BNVA) | payer MEDICARE, MEDICAID, SELFPAY | PROVIDERS: PCP Physician Assistant ==

== ENCOUNTER 2025-01-21 15:10 | Outpatient (AMB) | payer MEDICARE, MEDICAID, SELFPAY ==
[2025-01-21 15:12] VITALS: BP 138/80; PULSE 85; RESP 16; O2SAT 98; BMI 26.3
--- NOTE | 2025-01-21 15:12 | A.OFFVIS_ITS ---
Vital Signs 01/21/25 15:12 Height 5 ft 1 in Weight 139 lb BMI 26.3 BP 138/80 Blood Pressure Location Rt brachial Position Sitting Respiration 16 Pulse 85 Pulse Source Pulse Oximeter Pulse Oximetry (%) 98 Oxygen Delivery Method Room Air Intake Visit Reasons: Cervical Pain Program Supervisor Name: Amor [id number] Accompanied by: self Allergies gabapentin Allergy (Mild, Verified 01/21/25 15:20) Nausea HPI Comments Details: The patient is a 59-year-old female presenting with neck pain. She reports unsuccessful outcomes from physical therapy, stating no improvement in her symptoms. A recent MRI has indicated cervical stenosis and spondylosis, identif ied with narrowing and the presence of bone spurs. The patient experiences left- sided cervical pain that occasionally radiates down her left arm and reaches the hand, specifically between the thumb and index finger. This radiating pain intensifies with physical tasks such as organizing and heavy lifting. She describes the cervical pain as stabbing in nature and tender in certain areas. Her self-managed treatment has included Tylenol, ibuprofen, and application of heat and ice, none of which have provided substantial relief. She was in physical therapy until 1 month ago. - Onset: Persistent pain with intermittent radiating episodes - Quality: Stabbing; constant in the neck, intermittent in the arm - Location: Predominantly left-sided, radiating down the left arm into the hand, excluding fingers - Radiation: Down the left arm, between the thumb and index finger - Exacerbating factors: Physical tasks like organizing or heavy lifting - Relieving factors: [id number] medications (Tylenol, ibuprofen), heat, ice - Interference: Aggravated by demanding physical activities - Affect: The pain impacts her ability to perform physical tasks around the house - Analgesia: Currently using Tylenol and ibuprofen; no other pain control items mentioned - Adverse Effects: No adverse effects from medications reported - Activities of Daily Living: Pain restricts activities such as organizing and heavy lifting - Aberrant Drug-Related Behaviors: No signs of medication misuse reported [facility] Medical History (Updated 01/21/25 @ 16:09 by Eloise Mackay APRN, BLUEPRINT ENGINEER) Hypertension Lumbar spondylosis Depression Anxiety Lumbago with sciatica, right side Surgical History History of lumbar fusion Family History Mother Diabetes Heart disease Father Medical history unknown Social History Alcohol intake: never Patient Tobacco Use Status: Never used Tobacco e-Cigarette/Vaping Use: Never Used Review of Systems Const Details: - Musculoskeletal: Reports neck pain, radiation of pain to the arm - Neurological: Reports pain radiating to left hand - General: Denies relief from current [id number]-[id number] medication regimen Physical Exam Vital Signs: Last Vital Signs Pulse 85 01/21/25 15:12 Resp 16 01/21/25 15:12 BP 138/80 01/21/25 15:12 Pulse Ox 98 01/21/25 15:12 Oxygen Delivery Method Room Air 01/21/25 15:12 BMI result Body Mass Index 26.3 General: awake, alert, oriented. Answers questions appropriately. Fully engaged in examination. Skin: warm, dry, intact HEENT: Normocephalic. Hearing intact. Cardiac: External chest normal in appearance. Respiratory: No cough, audible wheezing or stridor. Abdomen: without gross distension. MS: No obvious swelling or deformities. Able to transition from sit to stand unassisted. Ambulates with bilaterally normal heel strike and toe off Cervical Spine: Visible inspection without gross abnormality Moderate tenderness throughout left upper trapezius muscles Tender to palpation midline cervical vertebrae and cervical paraspinal muscles Spurling compression test positive BUE strength 5/5 Neurological: Oriented to person, place, time and situation. Thought process intact. No gait abnormalities appreciated. Psychiatric: Appropriate mood and affect. Good judgment and insight. Results Reviewed Results Reviewed: 01/03/25 MR/MR cervical spine wo con FINDINGS: Craniocervical junction is intact. Normal position of the cerebellar tonsils. No bone marrow STIR signal abnormality. There is an intrinsic hyperintense T1 bone lesion in the vertebral body, T3. Reverse curvature apex at C4-5. Decreased intervertebral disc height and signal at C4-5. Grade 1 anterolisthesis C5-6 and C7-T1 level. Marginal osteophyte formation C4-5 and C5-6. There is mild buckling deformity of the dorsal aspect of the thecal sac secondary to ligamentum flavum hypertrophy at C5-6. Cervical spinal cord signal is normal. C2-3: No disc herniation. No neuroforamina stenosis. C3-4: Central disc osteophyte complex formation resulting in ventral deformity of spinal cord. No neuroforamina stenosis. C4-5: Central disc osteophyte complex formation resulting in ventral deformity of the spinal cord. No neuroforamina stenosis. C5-6: Central disc osteophyte complex formation resulting in ventral deformity of the thecal sac. No neuroforamina stenosis. Facet joint hypertrophy bilaterally. C6-7: Broad-based disc osteophyte complex formation. No cord compression. No disc herniation. No neuroforamina stenosis. C7-T1: No disc herniation. No neuroforamina stenosis. No prevertebral compartment hematoma, mass or fluid collection. Flow-void signal within the main vessels is normal. Codominant vertebral arteries. IMPRESSION: Cervical spondylosis C3-4, C4-5, and C5-6 resulting in reverse curvature apex at C4-5 and central spinal canal stenosis without cord compression, cord edema and or myelopathy. Intraosseous hemangioma, T3. 09/20/22 XR/XR lumbar spine 2-3V IMPRESSION: * Status post L4-S1 spinal fusion, fixating stable grade 1 anterolisthesis of L5 on S1. No evidence of hardware fracture or complication. * Advanced spondylosis of the lumbar spine at L3-L4, as above detailed. * Levoconvex curvature of the lumbar spine. * No acute osseous abnormality in the pelvis appreciated on this limited single view. Assessment & Plan Assessment & Plan (1) Cervical radiculopathy: Code(s): M54.12 - Radiculopathy, cervical region Category: Medical (2) Cervical spondylosis: Code(s): M47.812 - Spondylosis without myelopathy or radiculopathy, cervical region Category: Medical Plan The patient is advised to continue with her current regimen of ibuprofen and heat/ice while awaiting insurance authorization for a nerve conduction study to confirm level for a cervical epidural steroid injection under x-ray guidance, aiming to alleviate her cervical radicular symptoms. The potential risks and benefits of the procedure have been explained, and further intervention will be scheduled upon approval. Careful monitoring for symptom changes is recommended. I discussed with the patient her diagnosis from the MRI. The recommendation for a nerve conduction study to evaluate for potential cervical epidural steroid injection was thoroughly explained, communicating its purpose to help reduce inflammation and alleviate her pain symptoms. Possible risks associated with the procedure, including bleeding, infection, and pain exacerbation, were reviewed. I confirmed her understanding and willingness to proceed. Meanwhile, continuation of NSAIDs and non-pharmacologic measures like heat and ice remains prudent. Follow-up will be arranged appropriately post-authorization, and return precautions if symptoms worsen were also discussed. Patient was informed and verbally consented to the use of an ambient scribe for clinic note documentation during this visit. Orders: Orders NE electromyogram (EMG) Today M54.12 - Radiculopathy, cervical region NE nerve conduction velocity Today M54.12 - Radiculopathy, cervical region Patient Instructions: - Continue using ibuprofen as directed - Apply heat and ice as needed for pain relief - Wait for a call to schedule the nerve conduction study - Call or return to the clinic if pain worsens or changes - Follow instructions for household activities to avoid exacerbation of symptoms Coding Level of Care Code Est Pt Level 3 (03781) Complex EM visit Add On G2211 Diagnoses Cervical radiculopathy M54.12 Cervical spondylosis M47.812
--- OUTSIDE RECORDS SUMMARY | 2025-01-21 15:19 | XMS_ITS | Clinical Summary ---
Author Organization [facility] Address [address] [place] [address] Care Team Providers Care Corporate Concierge Name Role Phone Kodi Roach MD Primary Care Provider [phone] Social History Tobacco Use Types Packs/Day Years [...] Vaccine (1 of 2) 2013 Influenza Vaccine (Season Ended) 2025 RSV Adult > 60+ Yrs or Pregn [...] age to complete this topic Care Teams Corporate Concierge Relationship Specialty Start Date End Date Kodi Roach MD [address] [place] [address] [place] [address] PCP - General It Software Developer 04/22/20
== END 2025-01-21 15:40 | disposition home or self-care (01) ==
LOC: HO.PMC 15:11
PROVIDERS: PCP Physician Assistant; Visit Provider Registered Nurse Emergency
DX: M54.12 Radiculopathy, cervical region (principal); M47.812 Spondylosis without myelopathy or radiculopathy, cervical region
CPT/HCPCS: 99213; G2211

== ENCOUNTER → 2025-01-21 15:10 | Outpatient (BNVA) | payer MEDICARE, MEDICAID, SELFPAY | PROVIDERS: PCP Physician Assistant; Visit Provider Registered Nurse Emergency | DX: M54.12 Radiculopathy, cervical region (principal); M47.812 Spondylosis without myelopathy or radiculopathy, cervical region | CPT/HCPCS: 99212 ==

== ENCOUNTER → 2025-01-22 13:34 | Outpatient (BNVA) | payer MEDICARE, MEDICAID, SELFPAY | PROVIDERS: PCP Physician Assistant | DX: Z13.89 Encounter for screening for other disorder (principal) ==

== ENCOUNTER 2025-02-02 14:09 | Outpatient (AMB) | payer MEDICARE, MEDICAID, SELFPAY ==
--- NOTE | 2025-02-02 14:12 | MHC.PC.OV ---
Vital Signs 02/02/25 14:14 02/02/25 14:26 Height 5 ft 1 in Weight 61.689 kg BMI 25.7 BP 136/78 140/82 H Respiration 14 Pulse 66 Pulse Source Pulse Oximeter Temp 97.3 F Temp Source Temporal Artery Scan Pulse Oximetry (%) 98 Oxygen Delivery Method Room Air Intake Visit Reasons: 6 Week F/U - see comments Media Relations Director Required: No Accompanied by: Self / Same As Patient Allergies gabapentin Allergy (Mild, Verified 02/02/25 14:12) Nausea Medication List - Last Reconciled 02/02/25 by EDVIN Cuello amlodipine 5 mg PO BID cyclobenzaprine 5 mg PO TID PRN fexofenadine (Allergy Relief (fexofenadine)) 180 mg PO DAILY lorazepam 0.5 mg PO DAILY PRN pregabalin (Lyrica) 75 mg PO BEDTIME trazodone 50 mg PO BEDTIME PRN HPI HPI Comments History of Present Illness Details 59-year-old female with history of hypertension presents to the office today for blood pressure check. At last visit, blood pressures were significantly elevated and she was started on amlodipine 5 mg daily. She states she has been checking her blood pressures at home and blood pressure just prior to medication administration has been around 163/96. About 2 hours after taking the medication, blood pressure remains elevated at around 01:40 . Initial blood pressure in the office today is 136/78 and on recheck 140/82. Denies any lightheadedness, vision changes, headaches, chest pain. She also lives in chronic pain related to cervical radiculopathy. She states her pain is currently an 8/10 and does feel this does adversely affect her blood pressure. She has been following with pain management and is on Lyrica and cyclobenzaprine. ROS: General: No fevers, malaise, unintentional weight loss HEENT: No blurred vision, diplopia Cardiovascular: No chest pain, palpitations, or leg edema Respiratory: No shortness of breath, wheezing, cough MSK: see hpi Neuro: No headaches, weakness, paresthesias Skin: No rashes or lesions EXAM: Constitutional - Awake and Alert, No apparent distress Eyes - PERRL Cardiovascular - S1S2, RRR, No edema Respiratory - Normal lung expansion, Normal respiratory effort, No respiratory distress, CTA bilaterally Extremities - no calf tenderness bilaterally, no swelling Skin - Warm/Dry Neurological - Alert & oriented x3 Psychological - Appropriate affect PFSH Medical History (Updated 02/02/25 @ 14:36 by EDVIN Cuello) Vitamin D deficiency Hyperlipidemia Hypertension Lumbar spondylosis Depression Anxiety Lumbago with sciatica, right side Surgical History History of lumbar fusion Family History Mother Diabetes Heart disease Father Medical history unknown Social History Alcohol intake: never Patient Tobacco Use Status: Never used Tobacco e-Cigarette/Vaping Use: Never Used Physical exam (Primary Care) Vital Signs: Last Vital Signs Temp 97.3 F 02/02/25 14:14 Pulse 66 02/02/25 14:14 Resp 14 02/02/25 14:14 BP 136/78 02/02/25 14:14 Pulse Ox 98 02/02/25 14:14 Oxygen Delivery Method Room Air 02/02/25 14:14 BMI result Body Mass Index 25.7 Tobacco/Smoking Status: Tobacco use Status Patient Tobacco Use Status Never used Tobacco 02/02/25 14:16 e-Cigarette/Vaping Use Never Used 02/02/25 14:16 Coding Level of Care Code Est Pt Level 4 (06236) Complex EM visit Add On G2211 Diagnoses Hypertension I10 Cervical radiculopathy M54.12 Hyperlipidemia E78.5 Assessment & Plan Assessment & Plan (1) Hypertension: Code(s): I10 - Essential (primary) hypertension Category: Medical Plan: Uncontrolled. Increase amlodipine to 5 mg twice daily. She is advised to continue checking blood pressures. Advised to reach out to the office with blood pressures at the end of the week. Low-sodium diet advised. We did review labs including renal function which is within normal limits. Electrolytes are also normal. (2) Cervical radiculopathy: Code(s): M54.12 - Radiculopathy, cervical region Category: Medical Plan: MRI of the cervical spine ordered showing cervical stenosis and spondylosis as well as some bone spurring. Reviewed most recent pain management note. Follow-up with pain management as scheduled. Continue Lyrica 75 mg nightly and cyclobenzaprine as needed. You can continue ibuprofen and Tylenol as well as heat/ice and topical analgesics. (3) Hyperlipidemia: Code(s): E78.5 - Hyperlipidemia, unspecified Category: Medical Plan: LDL is slightly elevated at 109. Advised diet low in saturated fat and highly processed foods. Plan Follow-up in the office in 6 months. Labs reviewed in the office today including CBC, BNP, lipid panel. Labs ordered to be completed prior to next visit. Orders: Orders Lipid Panel 6 Months E55.9 - Vitamin D deficiency, unspecified, E78.5 - Hyperlipidemia, unspecified, I10 - Essential (primary) hypertension Basic Metabolic Panel 6 Months E55.9 - Vitamin D deficiency, unspecified, E78.5 - Hyperlipidemia, unspecified, I10 - Essential (primary) hypertension Medications: Changed From amlodipine 5 mg PO DAILY 90 tabs 1RF To amlodipine 5 mg PO BID 180 tabs 1RF
[2025-02-02 14:14] VITALS: BP 136/78; PULSE 66; RESP 14; TEMP 36.3; O2SAT 98; BMI 25.7
[2025-02-02 14:26] VITALS: BP 140/82
--- OUTSIDE RECORDS SUMMARY | 2025-02-02 15:54 | XMS_ITS | Clinical Summary ---
Author Organization [facility] Address [address] [place] [address] Care Team Providers Care Lace Inspector Name Role Phone Kodi Roach MD Primary Care Provider [phone] Social History Tobacco Use Types Packs/Day Years [...] age to complete this topic Care Teams Lace Inspector Relationship Specialty Start Date End Date Kodi Roach MD [address] [place] [address] [place] [address] PCP - General Dental Scheduling Coordinator 04/22/20
== END 2025-02-02 15:09 | disposition home or self-care (01) ==
LOC: HO.HMCHD 14:09
PROVIDERS: PCP Physician Assistant; Visit Provider Physician Assistant
DX: I10 Essential (primary) hypertension (principal); M54.12 Radiculopathy, cervical region; E78.5 Hyperlipidemia, unspecified

== ENCOUNTER → 2025-02-02 14:09 | Outpatient (BNVA) | payer MEDICARE, MEDICAID, SELFPAY | PROVIDERS: PCP Physician Assistant; Visit Provider Physician Assistant | DX: I10 Essential (primary) hypertension (principal); M54.12 Radiculopathy, cervical region; E78.5 Hyperlipidemia, unspecified; Z79.899 Other long term (current) drug therapy | CPT/HCPCS: 99212 ==

== ENCOUNTER 2025-02-26 14:41 | Outpatient (AMB) | payer MEDICARE, MEDICAID, SELFPAY ==
[2025-02-26 14:42] VITALS: BP 138/78; PULSE 74; O2SAT 97; BMI 25.5
--- NOTE | 2025-02-26 14:42 | A.OFFVIS_ITS ---
Vital Signs 02/26/25 14:42 Height 5 ft 1 in Weight 135 lb 2.294 oz BMI 25.5 BP 138/78 Blood Pressure Location Lt brachial Position Sitting Pulse 74 Pulse Source Pulse Oximeter Pulse Oximetry (%) 97 Oxygen Delivery Method Room Air Intake Visit Reasons: BACK PAIN Intake Note: Patient presents for follow up on back pain, travelling up to neck and shoulders. Allergies gabapentin Allergy (Mild, Verified 02/26/25 14:47) Nausea Medication List - Last Reconciled 02/26/25 by Geetha Mujica MD amlodipine 5 mg PO BID cyclobenzaprine 5 mg PO TID PRN fexofenadine (Allergy Relief (fexofenadine)) 180 mg PO DAILY lorazepam 0.5 mg PO DAILY PRN pregabalin (Lyrica) 75 mg PO BEDTIME trazodone 50 mg PO BEDTIME PRN HPI Comments Details: Patient is a 59 y.o. female with scoliosis s/ spinal fusion, HTN and degenerative spine disease here today for follow up Interval History: Patient last seen 04/28/[address] Espinoza - c/o chronic low back pain, right hip pain - Referred to pain management Today, - Following with pain management - Currently being evaluated for C spine complaints Rheumatologic History: Degenerative joint disease of the spine Current Rheumatology Medication(s): [facility] Medical History (Updated 02/02/25 @ 14:36 by EDVIN Cuello) Vitamin D deficiency Hyperlipidemia Hypertension Lumbar spondylosis Depression Anxiety Lumbago with sciatica, right side Surgical History History of lumbar fusion Family History Mother Diabetes Heart disease Father Medical history unknown Social History Alcohol intake: never Patient Tobacco Use Status: Never used Tobacco e-Cigarette/Vaping Use: Never Used Review of Systems Const Details: Review of Systems Constitutional: Denies fever, chills, weight loss ENT: Denies vision changes, eye pain or eye redness, dental caries, dry mouth GI: Denies nausea, vomiting, diarrhea, abdominal pain, change in BM Pulm: Denies SOB, FLORES, hemoptysis, wheezing Cards: Denies chest pain, palpitations Skin: Denies Raynaud's, rash, nail changes, photosensitivity, TELEMETRY TECHNICIAN: Denies headaches, weakness, paresthesias, recurrent falls MSK: as per HPI All other systems reviewed and are unremarkable except noted above Physical Exam Vital Signs: Last Vital Signs Pulse 74 02/26/25 14:42 BP 138/78 02/26/25 14:42 Pulse Ox 97 02/26/25 14:42 Oxygen Delivery Method Room Air 02/26/25 14:42 BMI result Body Mass Index 25.5 Vital signs reviewed Physical Examination CONSTITUITIONAL Patient alert and cooperative. Well appearing and in no apparent painful distress MSK Hands * Right Hand: Able to make a fist. No swelling or tenderness to palpation of these joints. No deformities noted. * Left Hand: Able to make a fist. No swelling or tenderness to palpation of these joints. No deformities noted. * Herbedens nodes noted bilaterally Wrists * Right Wrist: Full ROM. 70 degrees of wrist flexion, 80 degrees of wrist extension. No swelling or TTP * Left Wrist: Full ROM. 70 degrees of wrist flexion, 80 degrees of wrist extension. No swelling or TTP Elbows * Right Elbow: Full ROM. No swelling or TTP. No TTP of the medial and lateral epicondyles * Left Elbow: Full ROM. No swelling or TTP. No TTP of the medial and lateral epicondyles Shoulders * Right shoulder: Full ROM. No swelling noted. No TTP of the AC joint, subacromi al bursa or posterior shoulder * Left shoulder: Decreased ROM. Feeling pain in the neck Knees * Right knee: Decreased ROM. No swelling noted. No TTP of the knee joint lie or pes anserine bursa * Left knee: Decreased ROM. No swelling noted. No TTP of the knee joint lie or pes anserine bursa. * Crepitations felt bilaterally Ankles * Right ankle: Good ankle dorsiflexion and plantar flexion. No swelling. No TTP of the ankle joint * Left ankle: Good ankle dorsiflexion and plantar flexion. No swelling. No TTP of the ankle joint Feet * Right foot: Negative squeeze test * Left foot: Negative squeeze test Tender points? * No tenderness to palpation of the bilateral trapezius, supraspinatus, anterior costochondral junctions, bilateral suboccipital muscle insertions SKIN No rashes Results Reviewed Results Reviewed: C Spine MRI 12/2024 FINDINGS: Craniocervical junction is intact. Normal position of the cerebellar tonsils. No bone marrow STIR signal abnormality. There is an intrinsic hyperintense T1 bone lesion in the vertebral body, T3. Reverse curvature apex at C4-5. Decreased intervertebral disc height and signal at C4-5. Grade 1 anterolisthesis C5-6 and C7-T1 level. Marginal osteophyte formation C4-5 and C5-6. There is mild buckling deformity of the dorsal aspect of the thecal sac secondary to ligamentum flavum hypertrophy at C5-6. Cervical spinal cord signal is normal. C2-3: No disc herniation. No neuroforamina stenosis. C3-4: Central disc osteophyte complex formation resulting in ventral deformity of spinal cord. No neuroforamina stenosis. C4-5: Central disc osteophyte complex formation resulting in ventral deformity of the spinal cord. No neuroforamina stenosis. C5-6: Central disc osteophyte complex formation resulting in ventral deformity of the thecal sac. No neuroforamina stenosis. Facet joint hypertrophy bilaterally. C6-7: Broad-based disc osteophyte complex formation. No cord compression. No disc herniation. No neuroforamina stenosis. C7-T1: No disc herniation. No neuroforamina stenosis. No prevertebral compartment hematoma, mass or fluid collection. Flow-void signal within the main vessels is normal. Codominant vertebral arteries. IMPRESSION: Cervical spondylosis C3-4, C4-5, and C5-6 resulting in reverse curvature apex at C4-5 and central spinal canal stenosis without cord compression, cord edema and or myelopathy. Intraosseous hemangioma, T3. L Spine MRI 06/13/24 FINDINGS: CORONAL ALIGNMENT: -Mild dextroconvex scoliosis, apex at L1-2. SAGITTAL ALIGNMENT: -Normal lordosis. -Normal sagittal alignment aside from a 2 mm degenerative retrolisthesis of L3 on L4, and chronic mild anterolisthesis of L5 on S1. LUMBOSACRAL JUNCTION: -Normal. There are 5 [id number] lumbar-type vertebral bodies. VERTEBRAL BODIES/BONE MARROW: -There has been both anterior and posterior fusion of L4-S1 with associated laminectomies spanning L4-S1. -There are ventral fixation screws in L4 and L5 vertebral bodies, as well as bilateral transpedicular screws and posterior connecting rods, spanning the pedicles of L4, L5, and S1. -The hardware creates susceptibility artifact, obscuring immediately adjacent soft tissue and bone. -There has been placement of disc prostheses at L4-5 and L5-S1 and there is complete bony fusion through the disc spaces. There are mild edematous and fatty type endplate changes present at L3-4. There are hemangiomas in the right aspects of L1, L2, and L3. -There is no abnormal infiltrating bone marrow signal abnormality. DISCS: -Complete bony fusion through L4-5 and L5-S1. SPINAL CANAL: -Prominent epidural lipomatosis ventrally is present spanning the L4-5 disc space through the S2 level termination of the thecal sac. This is unchanged. -Otherwise, no congenital spinal canal abnormalities. -Central canal L4-5, and L5-S1 has been completely decompressed. CONUS MEDULLARIS: -Terminates at L1. Morphology and signal is normal. INTRADURAL NERVE ROOTS: - No mass, or abnormal clumping identified. Normal distribution within the thecal sac. Axial Disc Space Images: T12-L1: No central canal or neural foraminal narrowing. No change. L1-L2: No central canal or neural foraminal narrowing. Mild facet degeneration bilaterally. No change. L2-L3: No central canal or neural foraminal narrowing. Mild facet degeneration bilaterally, no change. L3-L4: Moderate bilateral hypertrophic facet changes right greater than left, mild to moderate posterior ligamentous thickening/infolding, bilateral foraminal disc osteophytic protrusions are present, with the combination of findings resulting in mild bilateral subarticular recess narrowing, no significant central canal narrowing, and mild to moderate bilateral neural foraminal narrowing. The central aspect of the disc bulge previously seen appears to have regressed somewhat. The foraminal zone findings are unchanged. L4-L5: Posterior laminectomy and fusion. Central canal has been decompressed. Ventral epidural lipomatosis. Moderate hypertrophic facet changes remain, however there is only mild right and no left neural foraminal narrowing. No evidence of nerve root contact or root compression. L5-S1: Posterior laminectomies and fusion. The central canal has been decompressed. There is prominent ventral epidural lipomatosis, stable. No central canal or subarticular recess narrowing. There is persistent moderate bilateral facet hypertrophy, of which may be contacting the posterior aspects of the traversing S1 roots right greater than left (series 8, image 20-21 demonstrates this). This is of uncertain clinical significance. Correlate for S1 radicular symptoms. Neural foramen are mildly narrowed bilaterally. No impingement. IMAGED SI JOINTS: -Mild degenerative arthrosis right greater than left. PARAVERTEBRAL AND INCLUDED EXTRASPINAL SOFT TISSUES: -Mild atrophy of the paraspinous musculature inferior to the surgical fusion. -Normal caliber aorta. -There is a simple parapelvic cyst in the left kidney. Kidneys otherwise appear normal. -No adenopathy appreciated. IMPRESSION: 1. No significant interval change from the prior examination. Surgical fusion of L4-S1 with hardware and associated laminectomies. The central canal is completely decompressed spanning L4-5 and L5-S1. 2. Facet hypertrophy contacts the right greater than left posterior margins of the traversing S1 nerve roots at L5-S1 without impingement. This is of unknown/uncertain clinical significance. Correlate for right greater than left S1 radiculopathy. 3. No evidence of arachnoiditis or nerve root clumping. 4. There is a mild dextroconvex scoliosis, unchanged. Assessment & Plan Assessment & Plan (1) Lumbar spondylosis: Code(s): M47.816 - Spondylosis without myelopathy or radiculopathy, lumbar region Category: Medical Plan: #Degenerative spine disease Patient is a 59-year-old female with degenerative spine disease particularly in the lumbar and C-spine. Currently under evaluation with pain management. 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 At this time her main complaint is from her spine. Rheumatology has limited intervention in this. Because of this I think we should have her follow up with Rheumatology on a p.r.n. basis Plan - Continue pain management evaluation - RTC prn Plan I spent 20 minutes reviewing the record and labs, taking a history, examining the patient, discussing the treatment plan, ordering diagnostic work up and documenting in the medical record Coding Level of Care Code Est Pt Level 3 (29442) Diagnoses Lumbar spondylosis M47.816
--- OUTSIDE RECORDS SUMMARY | 2025-02-26 14:43 | XMS_ITS | Clinical Summary ---
Author Organization [facility] Address [address] [place] [address] Care Team Providers Care Irrigationist Name Role Phone Kodi Roach MD Primary Care Provider [phone] Social History Tobacco Use Types Packs/Day Years [...] (1 of 2) 2013 Influenza Vaccine (#1) 2025 RSV Adult > 60+ Yrs or [...] age to complete this topic Care Teams Irrigationist Relationship Specialty Start Date End Date Kodi Roach MD [address] [place] [address] [place] [address] PCP - General Barrel Stave Inspector 04/22/20
== END 2025-02-26 15:19 | disposition home or self-care (01) ==
PROVIDERS: PCP Physician Assistant; Visit Provider Student in an Organized Health Care Education/Training Program
DX: M47.816 Spondylosis without myelopathy or radiculopathy, lumbar region (principal)
CPT/HCPCS: 99213

== ENCOUNTER → 2025-02-26 14:41 | Outpatient (BNVA) | payer MEDICARE, MEDICAID, SELFPAY | PROVIDERS: PCP Physician Assistant; Visit Provider Student in an Organized Health Care Education/Training Program | DX: M47.816 Spondylosis without myelopathy or radiculopathy, lumbar region (principal) | CPT/HCPCS: 99212 ==

== ENCOUNTER 2025-04-03 13:52 | Outpatient (REF) | payer MEDICARE, MEDICAID, SELFPAY ==
--- NOTE | 2025-04-03 13:54 | EMG_ITS ---
Chief complaint: Left-sided neck pain that radiates to the hand, denies numbness Reason for referral: Evaluate for radiculopathy Referred by: Eloise Mackay NP Procedure done: Left upper extremity NCS/EMG Precautions and/or limitations: None The limb temperature was monitored continuously and remained between 32-36 degrees C during the performance of the NCS. Nerve Conduction Studies Anti Sensory Summary Table ?Stim Site NR Onset (ms) Norm Onset (ms) Peak (ms) Norm Peak (ms) O-P Amp (?V) Norm O-P Amp Site1 Site2 Delta-0 (ms) Dist (cm) Christiano (m/s) Norm Chirstiano (m/s) Left Median Anti Sensory (2nd Digit) Wrist ? 2.7 3.5 <3.6 15.1 >10 Wrist 2nd Digit 2.7 14.0 52 Left Radial Anti Sensory (Thumb) Forearm ? 2.2 2.5 <3.1 12.1 Forearm Thumb 2.2 0.0 Left Ulnar Anti Sensory (5th Digit) Wrist ? 2.3 3.0 <3.7 32.4 >15.0 Wrist 5th Digit 2.3 14.0 61 Motor Summary Table ?Stim Site NR Onset (ms) Norm Onset (ms) O-P Amp (mV) Norm O-P Amp iAmp (mV) Amp (1st) (%) Site1 Site2 Delta-0 (ms) Dist (cm) Christiano (m/s) Norm Christiano (m/s) Left Median Motor (Abd Poll Brev) Wrist ? 3.7 <3.9 8.3 >4.5 9.5 100.0 Elbow Wrist 3.7 17.5 47 >45 Elbow ? 7.4 7.4 8.5 89.2 Left Ulnar Motor (Abd Dig Minimi) Wrist ? 2.6 <3.0 6.9 >5 7.9 100.0 B Elbow Wrist 2.6 15.0 58 >45 B Elbow ? 5.2 6.7 8.0 97.1 A Elbow B Elbow 1.4 10.0 71 >45 A Elbow ? 6.6 6.6 8.0 95.7 EMG ?Side Muscle Nerve Root Ins Act Fibs Psw Amp Dur Poly Recrt Int Pat Comment Left 1stDorInt Ulnar C8-T1 Nml Nml Nml Nml Nml 0 Nml Complete Left FlexCarRad Median C6-7 Nml Nml Nml Nml Nml 0 Nml Complete Left FlexCarpiUln Ulnar C8,T1 Nml Nml Nml Nml Nml 0 Nml Complete Left Biceps Musculocut C5-6 Nml Nml Nml Nml Nml 0 Nml Complete Left Triceps Radial C6-7-8 Nml Nml Nml Nml Nml 0 Nml Complete Left Deltoid Axillary C5-6 Nml Nml Nml Nml Nml 0 Nml Complete FINDINGS: All motor and sensory nerves tested showed normal latencies, amplitudes and conduction velocities. Concentric needle EMG was performed in selected muscles of the left upper extremity. Study did not reveal signs of electric abnormalities as shown in the table above. IMPRESSION: 1. This is a normal study. 2. There is no electrodiagnostic evidence for median neuropathy, ulnar neuropathy, brachial plexopathy, or cervical radiculopathy. Thank you for your kind referral. Dina Gutierrez MD, [facility] Board Certified, [place] Board of Physical [employer] and Rehabilitation (ABPMR) Board Certified, [place] Board of Electrodiagnostic Medicine (ABEM) [place] [id number] [facility]
--- OUTSIDE RECORDS SUMMARY | 2025-04-03 13:54 | XMS_ITS | Clinical Summary ---
Author Organization [facility] Address [address] [place] [address] Care Team Providers Care Inseam Trimming Machine Operator Name Role Phone Kodi Roach MD Primary Care Provider [phone] Social History Tobacco Use Types Packs/Day Years [...] age to complete this topic Care Teams Inseam Trimming Machine Operator Relationship Specialty Start Date End Date Kodi Roach MD [address] [place] [address] [place] [address] PCP - General Smelter Charger 04/22/20
== END 2025-04-03 13:53 | disposition home or self-care (01) ==
LOC: HO.NEURO 13:52
PROVIDERS: PCP Physician Assistant; Visit Provider Registered Nurse Emergency
DX: M54.12 Radiculopathy, cervical region (principal)
CPT/HCPCS: 95886; 95909

== ENCOUNTER → 2025-04-03 13:54 | Outpatient (BNV) | payer MEDICARE, MEDICAID, SELFPAY | PROVIDERS: PCP Physician Assistant; Visit Provider Physical Medicine & Rehabilitation | DX: M54.2 Cervicalgia (principal); R20.0 Anesthesia of skin; R20.2 Paresthesia of skin | CPT/HCPCS: 95886; 95909 ==

== ENCOUNTER 2025-05-01 11:25 | Outpatient (AMB) | payer MEDICARE, MEDICAID, SELFPAY ==
--- NOTE | 2025-05-01 11:27 | MHC.OFFVIS ---
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 The neck pain has been persistent, with no significant changes over time. An EMG was performed, which did not show any nerve compression at the time of the test. The patient has attempted physical therapy and medications such as Tylenol and ibuprofen, with limited relief. Muscle relaxants have been used occasionally to manage symptoms, but the patient prefers to avoid excessive medication use. - Onset: Persistent neck pain with radiation to the left arm - Quality: Pain in the cervical spine - Exacerbating factors: Ineffective relief from physical therapy and oicm-[id number] medications - Relieving factors: Occasional use of muscle relaxants - Affect: Pain impacts daily activities, requiring management strategies - Analgesia: Current use of Tylenol, ibuprofen, and muscle relaxants with limited effectiveness - Adverse Effects: Patient prefers to avoid excessive medication use - Activities of Daily Living: Pain affects daily functioning, necessitating intervention [facility] Medical History (Updated 02/02/25 @ 14:36 by EDVIN Cuello) Vitamin D deficiency Hyperlipidemia Hypertension Lumbar spondylosis Depression Anxiety Lumbago with sciatica, right side Surgical History History of lumbar fusion Family History Mother Diabetes Heart disease Father Medical history unknown Social History Alcohol intake: never Patient Tobacco Use Status: Never used Tobacco e-Cigarette/Vaping Use: Never Used Review of Systems Const Details: - Musculoskeletal: Reports persistent neck pain radiating to the left arm - Neurological: Denies any new neurological deficits Physical Exam Exam Exam: General: awake, alert, oriented. Answers questions appropriately. Fully engaged in examination. Skin: warm, dry, intact HEENT: Normocephalic. Hearing intact. Cardiac: External chest normal in appearance. Respiratory: No cough, audible wheezing or stridor. Abdomen: without gross distension. MS: No obvious swelling or deformities. Able to transition from sit to stand unassisted. Neurological: Oriented to person, place, time and situation. Thought process intact. No gait abnormalities appreciated. Psychiatric: Appropriate mood and affect. Good judgment and insight. Vital Signs: Last Vital Signs Pulse 72 05/01/25 11:28 Resp 16 05/01/25 11:28 BP 133/81 05/01/25 11:28 Pulse Ox 98 05/01/25 11:28 Oxygen Delivery Method Room Air 05/01/25 11:28 BMI result Body Mass Index 24.9 Results Reviewed Results Reviewed: 04/03/2025 EMG FINDINGS: All motor and sensory nerves tested showed normal latencies, amplitudes and conduction velocities. Concentric needle EMG was performed in selected muscles of the left upper extremity. Study did not reveal signs of electric abnormalities as shown in the table above. IMPRESSION: 1. This is a normal study. 2. There is no electrodiagnostic evidence for median neuropathy, ulnar neuropathy, brachial plexopathy, or cervical radiculopathy. C Spine MRI 12/2024 FINDINGS: Craniocervical junction is intact. Normal position of the cerebellar tonsils. No bone marrow STIR signal abnormality. There is an intrinsic hyperintense T1 bone lesion in the vertebral body, T3. Reverse curvature apex at C4-5. Decreased intervertebral disc height and signal at C4-5. Grade 1 anterolisthesis C5-6 and C7-T1 level. Marginal osteophyte formation C4-5 and C5-6. There is mild buckling deformity of the dorsal aspect of the thecal sac secondary to ligamentum flavum hypertrophy at C5-6. Cervical spinal cord signal is normal. C2-3: No disc herniation. No neuroforamina stenosis. C3-4: Central disc osteophyte complex formation resulting in ventral deformity of spinal cord. No neuroforamina stenosis. C4-5: Central disc osteophyte complex formation resulting in ventral deformity of the spinal cord. No neuroforamina stenosis. C5-6: Central disc osteophyte complex formation resulting in ventral deformity of the thecal sac. No neuroforamina stenosis. Facet joint hypertrophy bilaterally. C6-7: Broad-based disc osteophyte complex formation. No cord compression. No disc herniation. No neuroforamina stenosis. C7-T1: No disc herniation. No neuroforamina stenosis. No prevertebral compartment hematoma, mass or fluid collection. Flow-void signal within the main vessels is normal. Codominant vertebral arteries. IMPRESSION: Cervical spondylosis C3-4, C4-5, and C5-6 resulting in reverse curvature apex at C4-5 and central spinal canal stenosis without cord compression, cord edema and or myelopathy. Intraosseous hemangioma, T3. L Spine MRI 06/13/24 FINDINGS: CORONAL ALIGNMENT: -Mild dextroconvex scoliosis, apex at L1-2. SAGITTAL ALIGNMENT: -Normal lordosis. -Normal sagittal alignment aside from a 2 mm degenerative retrolisthesis of L3 on L4, and chronic mild anterolisthesis of L5 on S1. LUMBOSACRAL JUNCTION: -Normal. There are 5 [id number] lumbar-type vertebral bodies. VERTEBRAL BODIES/BONE MARROW: -There has been both anterior and posterior fusion of L4-S1 with associated laminectomies spanning L4-S1. -There are ventral fixation screws in L4 and L5 vertebral bodies, as well as bilateral transpedicular screws and posterior connecting rods, spanning the pedicles of L4, L5, and S1. -The hardware creates susceptibility artifact, obscuring immediately adjacent soft tissue and bone. -There has been placement of disc prostheses at L4-5 and L5-S1 and there is complete bony fusion through the disc spaces. There are mild edematous and fatty type endplate changes present at L3-4. There are hemangiomas in the right aspects of L1, L2, and L3. -There is no abnormal infiltrating bone marrow signal abnormality. DISCS: -Complete bony fusion through L4-5 and L5-S1. SPINAL CANAL: -Prominent epidural lipomatosis ventrally is present spanning the L4-5 disc space through the S2 level termination of the thecal sac. This is unchanged. -Otherwise, no congenital spinal canal abnormalities. -Central canal L4-5, and L5-S1 has been completely decompressed. CONUS MEDULLARIS: -Terminates at L1. Morphology and signal is normal. INTRADURAL NERVE ROOTS: - No mass, or abnormal clumping identified. Normal distribution within the thecal sac. Axial Disc Space Images: T12-L1: No central canal or neural foraminal narrowing. No change. L1-L2: No central canal or neural foraminal narrowing. Mild facet degeneration bilaterally. No change. L2-L3: No central canal or neural foraminal narrowing. Mild facet degeneration bilaterally, no change. L3-L4: Moderate bilateral hypertrophic facet changes right greater than left, mild to moderate posterior ligamentous thickening/infolding, bilateral foraminal disc osteophytic protrusions are present, with the combination of findings resulting in mild bilateral subarticular recess narrowing, no significant central canal narrowing, and mild to moderate bilateral neural foraminal narrowing. The central aspect of the disc bulge previously seen appears to have regressed somewhat. The foraminal zone findings are unchanged. L4-L5: Posterior laminectomy and fusion. Central canal has been decompressed. Ventral epidural lipomatosis. Moderate hypertrophic facet changes remain, however there is only mild right and no left neural foraminal narrowing. No evidence of nerve root contact or root compression. L5-S1: Posterior laminectomies and fusion. The central canal has been decompressed. There is prominent ventral epidural lipomatosis, stable. No central canal or subarticular recess narrowing. There is persistent moderate bilateral facet hypertrophy, of which may be contacting the posterior aspects of the traversing S1 roots right greater than left (series 8, image [id number] demonstrates this). This is of uncertain clinical significance. Correlate for S1 radicular symptoms. Neural foramen are mildly narrowed bilaterally. No impingement. IMAGED SI JOINTS: -Mild degenerative arthrosis right greater than left. PARAVERTEBRAL AND INCLUDED EXTRASPINAL SOFT TISSUES: -Mild atrophy of the paraspinous musculature inferior to the surgical fusion. -Normal caliber aorta. -There is a simple parapelvic cyst in the left kidney. Kidneys otherwise appear normal. -No adenopathy appreciated. IMPRESSION: 1. No significant interval change from the prior examination. Surgical fusion of L4-S1 with hardware and associated laminectomies. The central canal is completely decompressed spanning L4-5 and L5-S1. 2. Facet hypertrophy contacts the right greater than left posterior margins of the traversing S1 nerve roots at L5-S1 without impingement. This is of unknown/uncertain clinical significance. Correlate for right greater than left S1 radiculopathy. 3. No evidence of arachnoiditis or nerve root clumping. 4. There is a mild dextroconvex scoliosis, unchanged. Assessment & Plan Assessment & Plan (1) Cervical radiculopathy: Code(s): M54.12 - Radiculopathy, cervical region Category: Medical (2) Cervical spondylosis: Code(s): M47.812 - Spondylosis without myelopathy or radiculopathy, cervical region Category: Medical Plan The plan includes proceeding with a cervical spine injection to alleviate pain and inflammation. The procedure will involve the use of numbing medicine and a steroid, performed under x-ray guidance. The patient will be advised to take Ativan 30 minutes prior to the procedure to help with anxiety, with her daughter providing transportation. Potential risks such as bleeding, infection, and temporary numbness or weakness were discussed, with reassurance provided regarding the temporary nature of these effects. Will schedule for fluoroscopy guided C4-5 interlaminar epidural steroid injection with local anesthetic. Patient was informed and verbally consented to the use of an ambient scribe for clinic note documentation during this visit. Patient Instructions: - Take Ativan 30 minutes before the procedure. - Arrange for your daughter to drive you to the appointment. - Expect possibility of some temporary numbness or weakness in the arm after the procedure. Coding Level of Care Code Est Pt Level 3 (89587) Complex EM visit Add On G2211 Diagnoses Cervical radiculopathy M54.12 Cervical spondylosis M47.812
[2025-05-01 11:28] VITALS: BP 133/81; PULSE 72; RESP 16; O2SAT 98; BMI 24.9
== END 2025-05-01 11:48 | disposition home or self-care (01) ==
LOC: HO.PMC 11:26
PROVIDERS: PCP Physician Assistant; Visit Provider Registered Nurse Emergency
DX: M54.12 Radiculopathy, cervical region (principal); M47.812 Spondylosis without myelopathy or radiculopathy, cervical region
CPT/HCPCS: 99213; G2211

== ENCOUNTER → 2025-05-01 11:25 | Outpatient (BNVA) | payer MEDICARE, MEDICAID, SELFPAY | PROVIDERS: PCP Physician Assistant; Visit Provider Registered Nurse Emergency | DX: M54.12 Radiculopathy, cervical region (principal); M47.812 Spondylosis without myelopathy or radiculopathy, cervical region | CPT/HCPCS: 99212 ==